=== PATIENT | female | born 1945 | race African-American/Black ===

== ENCOUNTER 2017-06-11 19:25 | Emergency (ER) | payer MEDICARE, BC ==
[2017-06-11 19:51] LABS: #Basophils 0.1 thou/uL (0.0-0.2); #Eosinphils 0.4 thou/uL (0.0-0.7); #Lymphocytes 2.5 thou/uL (1.20-3.40); #Monocytes 0.8 thou/uL (0.11-0.59); #Neutrophils 5.2 thou/uL (1.40-6.50); %Basophils 1.1 % (0.0-1.0); %Eosinophils 4.4 % (0.0-10.0); Hematocrit 43.6 % (36.0-47.0); Mean Platelet Volume 9.1 fL (7.4-10.4); Red Blood Cell (RBC) Count 4.67 mill/uL (4.20-5.40); White Blood Cell (WBC) Count 9.1 thou/uL (4.8-10.8)
[2017-06-11 20:17] LABS: ALT (SGPT) 52 U/L (8-55); AST (SGOT) 50 U/L (5-34); Alkaline Phosphatase 137 U/L (40-150); Anion Gap 12 mmol/L (10-20); BUN (Urea Nitrogen) 16 mg/dL (9.8-20.1); Bilirubin, Total 0.4 mg/dL (0.2-1.2); Calc. Creatinine Clearance 0 mL/min (70-130); Calcium 9.5 mg/dL (7.8-10.44); Carbon Dioxide 25 mmol/L (23-31); Chloride 106 mmol/L (98-107); Estimated GFR-MDRD 70; Protein, Total 7.3 g/dL (6.0-8.3)
[2017-06-11 20:21] LABS: Lactic Acid - Sepsis 2.3 mmol/L (0.5-2.2)
[2017-06-11 20:27] LABS: CK (CPK) 49 U/L (29-168); Lipase 21 U/L (8-78)
[2017-06-11 20:32] LABS: Troponin I Less than 0.010 ng/mL (< 0.028)
--- NOTE | 2017-06-11 20:32 | RAD ---
CHEST ONE VIEW 06/11/17 HISTORY: Hyperglycemia. COMPARISON: Chest one view, 04/24/15. FINDINGS: Lungs are clear. No pneumothorax. No focal air space consolidation. Scarring in the left lung base. IMPRESSION: No acute intrathoracic abnormality. POS: [facility]
[2017-06-11 21:22] LABS: Anion Gap 6 mmol/L (-14-95); T. Carbon Dioxide 31.3 mmol/L (1.0-85.0); pH (Venous) 7.411 (7.35-7.45); vO2 Saturation-calc 94.1 % (0.0-100.0)
[2017-06-11 22:36] LABS: Bilirubin Negative (Negative); Blood, Urine Negative (Negative); Glucose, Urine (Dipstick) Negative (Negative); Ketone, Urine Negative (Negative); Nitrite Negative (Negative); Protein, Urine (Dipstick) Negative (Neg-Trace)
--- NOTE | 2017-07-17 14:10 | EKG ---
Test Reason : Blood Pressure : / mmHG Vent. Rate : 086 BPM Atrial Rate : 086 BPM P-R Int : 258 ms QRS Dur : 098 ms QT Int : 386 ms P-R-T Axes : 038 001 034 degrees QTc Int : 461 ms Sinus rhythm with 1st degree A-V block Poor precordial transistion Otherwise normal ECG Confirmed by FAYE WAGNER DO ([id number]), slot editor WALKER STARR ([id number]) on 07/17/2017 2:09:39 PM Referred By: Confirmed By:FAYE WAGNER DO
== END 2017-06-11 23:50 | disposition home or self-care (01) ==
LOC: ERS 19:25
DX: E11.65 Type 2 diabetes mellitus with hyperglycemia (principal); F41.9 Anxiety disorder, unspecified; I11.0 Hypertensive heart disease with heart failure; I50.9 Heart failure, unspecified; E11.9 Type 2 diabetes mellitus without complications; J44.9 Chronic obstructive pulmonary disease, unspecified; E78.00 Pure hypercholesterolemia, unspecified; F32.9 Major depressive disorder, single episode, unspecified; Z79.899 Other long term (current) drug therapy; Z79.01 Long term (current) use of anticoagulants; Z79.84 Long term (current) use of oral hypoglycemic drugs
CPT/HCPCS: 36416; 51701; 71010; 80053; 81003; 82010; 82330; 82550; 82553; 82803; 83605; 83690; 83880; 84484; 85025; 93005; 94760; A4353

== ENCOUNTER 2018-11-26 19:36 | Emergency (ER) | payer MEDICARE, BC ==
[2018-11-26 20:32] LABS: #Eosinphils 0.3 thou/uL (0.0-0.7); #Lymphocytes 2.7 thou/uL (1.20-3.40); #Monocytes 0.6 thou/uL (0.11-0.59); #Neutrophils 5.7 thou/uL (1.40-6.50); %Basophils 0.1 % (0.0-1.0); %Eosinophils 2.9 % (0.0-10.0); %Lymphocytes 29.4 % (21.0-51.0); %Neutrophils 61.6 % (42.0-75.0); Hemoglobin 13.7 g/dL (12.0-16.0); Mean Corpuscular HGB CONC 32.2 g/dL (32.0-36.0); Mean Corpuscular Volume 90.1 fL (78.0-98.0); Mean Platelet Volume 9.3 fL (7.4-10.4); Platelet Count 173 thou/uL (130-400); RBC Distribution Width 13.3 % (11.5-14.5); Red Blood Cell (RBC) Count 4.72 mill/uL (4.20-5.40); White Blood Cell (WBC) Count 9.2 thou/uL (4.8-10.8)
--- NOTE | 2018-11-26 20:52 | RAD ---
Portable frontal chest radiograph: 11/26/2018 COMPARISON: 06/11/2017 HISTORY: Shortness of breath, dyspnea FINDINGS: Stable prominence of the cardiac silhouette. Stable mild pulmonary vascular prominence. No pneumothorax, pleural fluid, lobar consolidation, or alveolar edema. Pression: Stable appearance of the chest.
[2018-11-26 21:00] LABS: ALT (SGPT) 11 U/L (8-55); AST (SGOT) 13 U/L (5-34); Albumin 3.7 g/dL (3.4-4.8); Alkaline Phosphatase 119 U/L (40-150); Anion Gap 15 mmol/L (10-20); BUN (Urea Nitrogen) 19 mg/dL (9.8-20.1); Bilirubin, Total 0.4 mg/dL (0.2-1.2); Calc. Creatinine Clearance 0 mL/min (70-130); Calcium 9.6 mg/dL (7.8-10.44); Carbon Dioxide 29 mmol/L (23-31); Chloride 101 mmol/L (98-107); Estimated GFR-MDRD 66; Globulin 3.1 g/dL (2.4-3.5); Glucose 130 mg/dL (83-110); Potassium 4.5 mmol/L (3.5-5.1); Protein, Total 6.8 g/dL (6.0-8.3)
[2018-11-26 21:01] LABS: Sodium 140 mmol/L (136-145)
[2018-11-26] MEDS ORDERED: predniSONE 20 MG TAB ONE (22:20)
== END 2018-11-26 22:30 | disposition home or self-care (01) ==
LOC: ERS 19:36
DX: J44.1 Chronic obstructive pulmonary disease with (acute) exacerbation (principal); M19.90 Unspecified osteoarthritis, unspecified site; I11.0 Hypertensive heart disease with heart failure; I50.9 Heart failure, unspecified; F41.9 Anxiety disorder, unspecified; F32.9 Major depressive disorder, single episode, unspecified; Z79.891 Long term (current) use of opiate analgesic; Z79.899 Other long term (current) drug therapy; Z79.51 Long term (current) use of inhaled steroids
CPT/HCPCS: 36415; 71045; 80053; 83880; 84484; 85025; 93005; J7512

== ENCOUNTER 2019-01-11 13:13 | Outpatient (CLI) | payer MEDICARE, BC ==
--- NOTE | 2019-01-11 14:01 | MMO ---
Bilateral MAMMO Bilat Screen [facility]. CLINICAL HISTORY: Patient is 73 years old and is seen for screening. The patient has no family history of breast cancer. The patient has no personal history of cancer. VIEWS: The views performed were: bilateral craniocaudal with tomosynthesis and bilateral mediolateral oblique with tomosynthesis. FILMS COMPARED: The present examination has been compared to prior imaging studies performed at [facility] on 01/21/2005, 02/05/2006, 02/24/2007 and 08/20/2016. MAMMOGRAM FINDINGS: The breasts are almost entirely fat. There are benign appearing calcifications seen in both breasts. There are no suspicious masses, suspicious calcifications, or new areas of architectural distortion. IMPRESSION: THERE IS NO MAMMOGRAPHIC EVIDENCE OF MALIGNANCY. A ROUTINE FOLLOW-UP MAMMOGRAM IN 1 YEAR IS RECOMMENDED. THE RESULTS OF THIS EXAM WERE SENT TO THE PATIENT. ACR BI-RADS Category 2 - Benign finding MAMMOGRAPHY NOTE: 1. A negative mammogram report should not delay a biopsy if a dominant of clinically suspicious mass is present. 2. Approximately 10% to 15% of breast cancers are not detected by mammography. 3. Adenosis and dense breasts may obscure an underlying neoplasm.
== END 2019-01-11 13:14 | disposition home or self-care (01) ==
LOC: BICMAMMO 13:13
PROVIDERS: ATTEND Family Medicine
DX: Z12.31 Encounter for screening mammogram for malignant neoplasm of breast (principal)
CPT/HCPCS: 77063; 77067

== ENCOUNTER 2019-04-04 08:06 | Day surgery (SDC) | payer MEDICARE, BC ==
[2019-04-03 13:03] VITALS: BMI 64.3
[2019-04-04] MEDS ORDERED: Midazolam HCl 2 mg/2 ml Vial ONE (09:10)
[2019-04-04] MEDS ORDERED: Ketamine 50 MG/ML (10ML VIAL) ONE (09:11)
[2019-04-04] MEDS ORDERED: PROPOFOL 200 MG/20 ML VIAL ONE (15:12)
[2019-04-04] MEDS ORDERED: Lidocaine 1% PF 5 ML VIAL ONE (15:12)
--- NOTE | 2019-04-04 15:48 | OP ---
DATE OF PROCEDURE: 04/04/2019 PREPROCEDURE DIAGNOSES: 1. History of positive Cologuard test. 2. Morbid obesity. 3. Obstructive sleep apnea with home dependence on oxygen. PROCEDURE PERFORMED: Seven polyps removed from the colon ranging in size from 4 to 10 mm, removed by hot snare polypectomy. RECOMMENDATIONS: 1. Await histopathology. If these are adenomas, consider repeat colonoscopy in 3 years. 2. Cologuard screening is approved for average risk screening. This patient is no longer average risk. She will need colonoscopy followups. ANESTHESIA: TIVA. PROCEDURE IN DETAIL: The patient was informed of the risks, benefits, and possible complications of endoscopy including perforation, reaction to medication, and aspiration, informed consent was obtained. The patient was brought to endoscopy suite, where she was sedated in gradual fashion. Once she was comfortable, a rectal examination was performed, which was normal. The endoscope was advanced in the anal canal through the colon. The cecum was identified by the ileocecal valve and appendiceal orifice. The scope was then slowly removed. The prep was good. There was one polyp in the cecum flat 7 mm in size removed by hot snare polypectomy. There were two hepatic flexure polyps semi-pedunculated 5 to 10 mm in size, removed by hot snare polypectomy. There were three descending colon polyps, which were ranging in size from 5 to 10 mm semi-pedunculated, removed by hot snare polypectomy. There was one small 7 mm polyp in the sigmoid colon by hot snare polypectomy. This one was removed, but not retrieved. Retroflexed views were normal. The scope was removed. The patient tolerated the procedure well. There were no complications. Job ID: [id number]
== END 2019-04-04 10:48 | disposition home or self-care (01) ==
LOC: SDC 08:06
PROVIDERS: ATTEND Internal Medicine Gastroenterology
PROC: 0DBH8ZX Excision of Cecum, Via Natural or Artificial Opening Endoscopic, Diagnostic (ICD-10-PCS; principal; 2019-04-04)
PROC: 0DBL8ZX Excision of Transverse Colon, Via Natural or Artificial Opening Endoscopic, Diagnostic (ICD-10-PCS; 2019-04-04)
PROC: 0DBN8ZX Excision of Sigmoid Colon, Via Natural or Artificial Opening Endoscopic, Diagnostic (ICD-10-PCS; 2019-04-04)
PROC: 0DBM8ZX Excision of Descending Colon, Via Natural or Artificial Opening Endoscopic, Diagnostic (ICD-10-PCS; 2019-04-04)
DX: D12.0 Benign neoplasm of cecum (principal); D12.3 Benign neoplasm of transverse colon; D12.4 Benign neoplasm of descending colon; K63.5 Polyp of colon; G47.33 Obstructive sleep apnea (adult) (pediatric); K21.9 Gastro-esophageal reflux disease without esophagitis; F41.9 Anxiety disorder, unspecified; M19.90 Unspecified osteoarthritis, unspecified site; F32.9 Major depressive disorder, single episode, unspecified; I11.0 Hypertensive heart disease with heart failure; I50.9 Heart failure, unspecified; E78.00 Pure hypercholesterolemia, unspecified; E66.01 Morbid (severe) obesity due to excess calories; Z68.44 Body mass index [BMI] 60.0-69.9, adult; Z79.01 Long term (current) use of anticoagulants; Z79.84 Long term (current) use of oral hypoglycemic drugs; Z79.899 Other long term (current) drug therapy; Z88.0 Allergy status to penicillin; Z99.89 Dependence on other enabling machines and devices
CPT/HCPCS: 88305; J2001; J2250; J2704

== ENCOUNTER 2019-06-24 21:03 | Emergency (ER) | payer MEDICARE, BC ==
[~2019-06-24 21:03] MED LIST: Iopamidol 370 76% 50 ML VIAL FS ONE
[2019-06-24 22:36] LABS: #Basophils 0.1 thou/uL (0.0-0.2); #Lymphocytes 1.8 thou/uL (1.20-3.40); #Monocytes 0.7 thou/uL (0.11-0.59); #Neutrophils 8.7 thou/uL (1.40-6.50); %Basophils 0.5 % (0.0-1.0); %Eosinophils 0.3 % (0.0-10.0); %Lymphocytes 15.6 % (21.0-51.0); %Monocytes 5.8 % (0.0-10.0); %Neutrophils 77.8 % (42.0-75.0); Hemoglobin 13.7 g/dL (12.0-16.0); Mean Corpuscular HGB CONC 31.3 g/dL (32.0-36.0); Mean Corpuscular Volume 89.7 fL (78.0-98.0); Mean Platelet Volume 9.2 fL (7.4-10.4); Platelet Count 173 thou/uL (130-400); RBC Distribution Width 13.8 % (11.5-14.5); Red Blood Cell (RBC) Count 4.88 mill/uL (4.20-5.40); White Blood Cell (WBC) Count 11.2 thou/uL (4.8-10.8)
[2019-06-24 22:59] LABS: ALT (SGPT) 10 U/L (8-55); AST (SGOT) 10 U/L (5-34); Albumin 3.5 g/dL (3.4-4.8); Alkaline Phosphatase 97 U/L (40-110); Anion Gap 10 mmol/L (10-20); BUN (Urea Nitrogen) 12 mg/dL (9.8-20.1); Bilirubin, Total 0.6 mg/dL (0.2-1.2); Calc. Creatinine Clearance 0 mL/min (70-130); Calcium 9.8 mg/dL (7.8-10.44); Carbon Dioxide 29 mmol/L (23-31); Chloride 102 mmol/L (98-107); Estimated GFR-MDRD 82; Globulin 3.2 g/dL (2.4-3.5); Glucose 157 mg/dL (83-110); Lipase 5 U/L (8-78); Potassium 3.8 mmol/L (3.5-5.1); Protein, Total 6.7 g/dL (6.0-8.3); Sodium 137 mmol/L (136-145)
[2019-06-24] MEDS ORDERED: Ondansetron PF 4 MG/2 ML Vial ONE (23:06)
[2019-06-24] MEDS ORDERED: Morphine 4 MG/ML VIAL ONE (23:06)
--- NOTE | 2019-06-24 23:25 | RAD ---
RADIOGRAPH CHEST 1 VIEW: DATE: 06/24/2019 HISTORY: 73-year-old female with dyspnea FINDINGS: There is no airspace density, pulmonary edema, or pneumothorax. The lateral costophrenic angles are n ot effaced. Cardiac shadow is widened. It is uncertain how much of this is due to magnification due to body habitus, and how much, if any, represents actual cardiomegaly. Haziness in left lower lung zo ne, probably due to overlying soft tissues and body habitus. Left lower lobe infiltrate less likely but not excluded. IMPRESSION: Limited study. No convincing evidence of acute pulmonary disease.
--- NOTE | 2019-06-25 08:11 | CT ---
PRELIMINARY REPORT/[facility]/EMERGENCY AFTER HOURS PROCEDURE: This report was discussed with Oren Drake by Joan Johnson on Jun 25, 2019 01:59:00 ENTRY LEVEL ADMINISTRATIVE ASSISTANT. Addendum electronically signed by Joan Johnson on June 25, 2019 2:00:00 AM ENTRY LEVEL ADMINISTRATIVE ASSISTANT EXAM: CT ABDOMEN PELVIS W CON HISTORY: 73F reports to ED c/o sudden abdominal cramping, since 1600. PMHX cholecystectomy, hysterect pat. Pt reports associated vomiting (no blood), diarrhea. Pt denies fevers. COMPARISON: None FINDINGS: The lung bases are without acute abnormality. Postsurgical changes of prior laparoscopic cholecystectomy. No acute abnormality of the liver, spleen or pancreas. The adrenal glands are normal. No hydronephrosis or hydroureter. Several prominent, fluid-filled loops of small bowel within the right lower quadrant. No bowel wall mural thickening The appendix is discretely visualized. Anterior abdominal wall fat-containing hernia, inferiorly located at the midline. There is minimal i nternal fluid attenuation. (image 82, series 602 and image 78, series 2). No acute osseous abnormality. Multilevel degenerative changes throughout the visualized spine. No acute abnormality of the subcutaneous soft tissues. IMPRESSION: 1. Multiple prominent fluid-filled loops of small bowel within the right lower quadrant, which is no nspecific, can be seen with enteritis. No discrete evidence for bowel obstruction. 2. Fat-containing anterior abdominal wall hernia. There is intra-hernia fluid, which may be inflamm atory or reactive in etiology. Recommend clinical correlation for focal symptoms at this location. 3. The appendix is not visualized. ELECTRONICALLY SIGNED BY: Laurie Us MD Jun 25, 2019 1:48:05 AM ENTRY LEVEL ADMINISTRATIVE ASSISTANT This report is intended for review by the ordering physician only, in accordance of law. If you recei ve this report in error, please call [facility] at [phone]. FINAL REPORT I agree with the preliminary report provided. A few mildly prominent loops of small bowel within the lower central abdomen and right lower quadrant of the abdomen can be seen with an enteritis. The appendix is not definitely visualized. No draina ble fluid collection is evident. Other chronic findings as above. POS: [facility]
== END 2019-06-25 02:27 | disposition home or self-care (01) ==
LOC: ERS 21:03
DX: K52.9 Noninfective gastroenteritis and colitis, unspecified (principal); M19.90 Unspecified osteoarthritis, unspecified site; I11.0 Hypertensive heart disease with heart failure; I50.9 Heart failure, unspecified; E11.9 Type 2 diabetes mellitus without complications; F41.9 Anxiety disorder, unspecified; F32.9 Major depressive disorder, single episode, unspecified; J44.9 Chronic obstructive pulmonary disease, unspecified; Z79.899 Other long term (current) drug therapy; Z79.891 Long term (current) use of opiate analgesic
CPT/HCPCS: 36415; 71045; 74177; 80053; 83690; 85025; 93005; 96361; 96374; 96375; J2270; J2405; Q9967

== ENCOUNTER 2020-06-25 10:14 | Emergency (ER) | payer MEDICARE, BC ==
[2020-06-25] MEDS ORDERED: HYDROcodone/Acetaminophen 10/325 mg Tablet ONE (10:33)
[2020-06-25 10:58] LABS: Hemoglobin 13.6 g/dL (12.0-16.0); Mean Corpuscular HGB CONC 31.2 g/dL (32.0-36.0); Mean Corpuscular Hemoglobin 28.9 pg (27.0-31.0); Mean Corpuscular Volume 92.4 fL (78.0-98.0); Mean Platelet Volume 9.4 fL (7.4-10.4); Platelet Count 137 thou/uL (130-400); RBC Distribution Width 13.3 % (11.5-14.5); Red Blood Cell (RBC) Count 4.71 mill/uL (4.20-5.40); White Blood Cell (WBC) Count 7.4 thou/uL (4.8-10.8)
[2020-06-25 11:14] LABS: Band 1 % (5-11); Eosinophils 1 % (0-10); Lymphocytes 17 % (21-51); MDiff Complete? YES; Monocytes 18 % (0-10); Neutrophil 60 % (42-75); Platelet Morphology Comment Appears Adequate; Polychromasia SLIGHT = 2-3 cells (100X) (0-2/hpf); Reactive Lymphocytes 3 % (0-10)
[2020-06-25 11:18] LABS: ALT (SGPT) 7 U/L (8-55); AST (SGOT) 13 U/L (5-34); Albumin 3.3 g/dL (3.4-4.8); Alkaline Phosphatase 91 U/L (40-110); Anion Gap 13 mmol/L (10-20); BUN (Urea Nitrogen) 14 mg/dL (9.8-20.1); Bilirubin, Total 0.4 mg/dL (0.2-1.2); CK (CPK) 105 U/L (29-168); Calc. Creatinine Clearance 0 mL/min (70-130); Calcium 9.3 mg/dL (7.8-10.44); Carbon Dioxide 30 mmol/L (23-31); Chloride 100 mmol/L (98-107); Estimated GFR-MDRD 66; Globulin 3.2 g/dL (2.4-3.5); Glucose 133 mg/dL (83-110); Potassium 4.1 mmol/L (3.5-5.1); Protein, Total 6.5 g/dL (6.0-8.3); Sodium 139 mmol/L (136-145)
--- NOTE | 2020-06-25 11:25 | CT ---
CT BRAIN WITHOUT CONTRAST: HISTORY: Headache, fall, patient on blood thinners FINDINGS: No evidence of acute infarct, hemorrhage, midline shift or abnormal extra-axial fluid collections is seen. The ventricular size is appropriate and the basilar cisterns are patent. The bony calvarium is intact. The visualized paranasal sinuses and mastoid air cells are well aerated. IMPRESSION: No CT evidence of acute intracranial process.
--- NOTE | 2020-06-25 11:28 | CT ---
CT CERVICAL SPINE WITH CORONAL AND SAGITTAL REFORMATIONS AND NO IV CONTRAST: HISTORY: Fall, neck pain FINDINGS: Multilevel degenerative changes are present. There is loss of cervical lordosis with mild reversal. No fracture, subluxation or facet malalignment is identified. No prevertebral soft tissue swelling is apparent. The visualized lung apices are unremarkable. IMPRESSION: No CT evidence for fracture or traumatic subluxation.
--- NOTE | 2020-06-25 12:02 | RAD ---
PORTABLE CHEST 1 VIEW: Date: 06/25/2020 Time: 1102 hours HISTORY: 74-year-old female with cough, headache. COMPARISON: 06/24/2019. FINDINGS/IMPRESSION: The heart size is enlarged. No lobar consolidation, pneumothoraces, rufino pulmonary edema, or large e ffusions are seen. Haziness in the left retrocardiac region is again noted. POS: [facility]
[2020-06-25 20:13] LABS: SARS-CoV-2 MS2 Positive; SARS-CoV-2 N Gene Positive; SARS-CoV-2 S Gene Positive; SARS-CoV-2 by NAA DETECTED (NotDetected); SARS-CoV-2 orf1ab Positive
--- NOTE | 2020-06-29 15:19 | EKG ---
Test Reason : Blood Pressure : / mmHG Vent. Rate : 071 BPM Atrial Rate : 071 BPM P-R Int : 240 ms QRS Dur : 094 ms QT Int : 412 ms P-R-T Axes : 043 -03 -20 degrees QTc Int : 447 ms Sinus rhythm with 1st degree A-V block Inferior infarct , age undetermined Cannot rule out Anterior infarct , age undetermined Abnormal ECG Confirmed by CAMERON RUIZ ([id number]), technical editor GEOVANNY RAMOS ([id number]) on 06/29/2020 3:19:04 PM Referred By: Confirmed By:CAMERON Cabello
== END 2020-06-25 12:43 | disposition home or self-care (01) ==
LOC: ERS 10:14
DX: U07.1 COVID-19 (principal); J12.89 Other viral pneumonia; I11.0 Hypertensive heart disease with heart failure; I50.9 Heart failure, unspecified; E11.9 Type 2 diabetes mellitus without complications; J44.9 Chronic obstructive pulmonary disease, unspecified; Z79.51 Long term (current) use of inhaled steroids; Z79.01 Long term (current) use of anticoagulants; Z79.899 Other long term (current) drug therapy
CPT/HCPCS: 70450; 71045; 72125; 80053; 82550; 84484; 85025; 93005; 99285; U0003; 36415; 87635

== ENCOUNTER 2020-07-11 11:05 | Inpatient (IN) | payer MEDICARE, BC ==
[2020-07-11] MEDS ORDERED: Albuterol 200 PUFF (6.7GM INHALER) ONE (11:48)
--- NOTE | 2020-07-11 12:01 | RAD ---
PORTABLE CHEST 1 VIEW: Date: 07/11/2020 Time: 1151 hours HISTORY: Dyspnea. COMPARISON: 06/25/2020. FINDINGS/IMPRESSION: The heart size is enlarged. The lungs are well expanded with pulmonary vascular congestion and multif ocal patchy opacities. No pneumothoraces or large effusions are seen. The possibility of viral pneumo neela cannot be excluded. POS: [facility]
[2020-07-11 13:48] LABS: #Eosinphils 0.2 thou/uL (0.0-0.7); #Lymphocytes 1.6 thou/uL (1.20-3.40); #Monocytes 0.6 thou/uL (0.11-0.59); #Neutrophils 4.2 thou/uL (1.40-6.50); %Basophils 0.3 % (0.0-1.0); %Lymphocytes 24.7 % (21.0-51.0); %Monocytes 8.6 % (0.0-10.0); %Neutrophils 63.4 % (42.0-75.0); Mean Corpuscular HGB CONC 31.2 g/dL (32.0-36.0); Mean Corpuscular Hemoglobin 28.9 pg (27.0-31.0); Mean Corpuscular Volume 92.5 fL (78.0-98.0); Mean Platelet Volume 9.5 fL (7.4-10.4); Platelet Count 266 thou/uL (130-400); RBC Distribution Width 13.3 % (11.5-14.5); Red Blood Cell (RBC) Count 4.49 mill/uL (4.20-5.40); White Blood Cell (WBC) Count 6.6 thou/uL (4.8-10.8)
[2020-07-11] MEDS ORDERED: methylPREDNISolone Sod Succ/PF 125 MG/2 ML VIAL ONE (13:50)
[2020-07-11 14:14] LABS: ALT (SGPT) Less than 7 U/L (8-55); AST (SGOT) 9 U/L (5-34); Albumin 3.2 g/dL (3.4-4.8); Alkaline Phosphatase 78 U/L (40-110); Anion Gap 13 mmol/L (10-20); BUN (Urea Nitrogen) 11 mg/dL (9.8-20.1); Bilirubin, Total 0.5 mg/dL (0.2-1.2); Calc. Creatinine Clearance 0 mL/min (70-130); Calcium 8.4 mg/dL (7.8-10.44); Carbon Dioxide 29 mmol/L (23-31); Chloride 103 mmol/L (98-107); Globulin 3.2 g/dL (2.4-3.5); Glucose 112 mg/dL (83-110); Potassium 4.5 mmol/L (3.5-5.1); Protein, Total 6.4 g/dL (6.0-8.3); Sodium 140 mmol/L (136-145)
--- NOTE | 2020-07-11 18:58 | HP ---
PRIMARY CARE PROVIDER: Dr. Juan M Stein. CHIEF COMPLAINT: Shortness of breath. HISTORY OF PRESENT ILLNESS: This is a 74-year-old female, who presented to [facility] Emergency Department complaining of persistent shortness of breath with general body aches and lack of energy over the last 3 to 4 days. The patient states that she was diagnosed with COVID-19 on 06/25/2020 and placed on home oxygen up to 2 L/minute by nasal cannula. The patient states she was not using oxygen prior to the diagnosis, but has been over the last 2 plus weeks. The patient admits to persistent cough and some chills. The patient states she has been compliant with her chronic medication regimen and takes [id number] Tylenol for general body aches. The patient denies any specific contact with family members with COVID-19, but states she typically is very cautious about exposure and going out into the community. In the emergency room, patient underwent general evaluation with chest imaging showing multifocal patchy opacities consistent with COVID pneumonia. The patient received IV Solu-Medrol, Proventil HFA and was referred to the Hospitalist Service for evaluation. PAST MEDICAL HISTORY: 1. COVID-19 viral infection positive, 06/25/2020. 2. Diabetes mellitus type 2. 3. Chronic obstructive pulmonary disease. 4. Hyperlipidemia. 5. Hypertension. 6. Morbid obesity. 7. Question of congestive heart failure. 8. Deconditioning. PAST SURGICAL HISTORY: 1. Status post cholecystectomy. 2. Status post hysterectomy. 3. Status post bilateral tubal ligation. PAST PSYCHIATRIC HISTORY: Positive for anxiety/depression. CURRENT MEDICATIONS: 1. Albuterol sulfate 1 to 2 puffs inhaled q.4-6 hours p.r.n. 2. Protonix 40 mg p.o. daily. 3. Sertraline 150 mg p.o. daily. 4. Alprazolam 0.25 mg p.o. daily p.r.n. 5. Gabapentin 300 mg p.o. t.i.d. 6. Carvedilol 3.125 mg p.o. b.i.d. 7. Potassium chloride 40 mEq p.o. daily. 8. Lipitor 20 mg p.o. daily. 9. Eliquis 5 mg p.o. b.i.d. 10. Vitamin D3 of 50,000 units once a day. 11. Glipizide 2.5 mg p.o. daily. 12. Isosorbide mononitrate 30 mg p.o. daily. 13. Lasix 40 mg daily. 14. Losartan 25 mg p.o. daily. 15. Flexeril 5 mg p.o. q.8 hours p.r.n. ALLERGIES: TO PENICILLIN. FAMILY HISTORY: Positive for hypertension and diabetes mellitus. SOCIAL HISTORY: Resides in [place], [place]. Living independently. Retired. No alcohol, tobacco, or illicit drug use. Ambulates with a rolling walker. REVIEW OF SYSTEMS: CONSTITUTIONAL: Negative for weight loss or gain, ability to conduct usual activities. SKIN: Negative for rash, itching. EYES: Negative for double vision, pain. ENT/MOUTH: Negative for nose bleeding, neck stiffness, pain, tenderness. CARDIOVASCULAR: Negative for palpitations, dyspnea on exertion, orthopnea. RESPIRATORY: Negative for shortness of breath, wheezing, cough, hemoptysis, fever or night sweats. GASTROINTESTINAL: Negative for poor appetite, abdominal pain, heartburn, nausea, vomiting, constipation, or diarrhea. GENITOURINARY: Negative for urgency, frequency, dysuria, nocturia. MUSCULOSKELETAL: Negative for pain, swelling. NEUROLOGIC/PSYCHIATRIC: Negative for anxiety, depression. ALLERGY/IMMUNOLOGIC: Negative for skin rash, bleeding tendency. Otherwise negative except as stated per HPI. PHYSICAL EXAMINATION: VITAL SIGNS: On admission, blood pressure 137/78, pulse 85, respiratory rate 27, temperature 99.2 degrees Fahrenheit, O2 saturation 97% on 2 L/minute by nasal cannula. GENERAL APPEARANCE: This is a 74-year-old female, alert and oriented x3, pleasant, responsive, in mild respiratory distress. HEENT: Pupils are equal, round, and reactive to light and accommodation. Extraocular muscles are intact. No scleral icterus. No conjunctival injection. Nares are patent. OP is clear. Teeth in fair repair. NECK: Supple. No cervical adenopathy. No thyromegaly. No carotid bruits. No JVD appreciated. Cervical spine with full active and passive range of motion. No meningeal signs noted. CHEST: Diminished breath sounds bilaterally with occasional rhonchi. Positive tachypnea. CARDIOVASCULAR EXAM: S1, S2 without noted murmur, rub, or gallop. Heart sounds are distant. ABDOMEN: Obese, soft, nondistended, nontender. Bowel sounds are positive in all 4 quadrants. No palpable mass. No rebound or guarding appreciated. EXTREMITIES: Warm and dry with fair turgor. Pitting edema to the proximal shins bilaterally. Pulses palpable distally at the dorsalis pedis, posterior tibial, and popliteal arteries bilaterally. Capillary refill less than 2 seconds. NEUROLOGIC: Cranial nerves 2 through 12 are grossly intact. No focal or lateralizing signs appreciated. PERTINENT LABORATORY AND X-RAY FINDINGS: Basic metabolic profile within normal limits. Lactic acid level 0.9. LFTs within normal limits. Troponin I negative x1. BNP 24.7. CBC within normal limits. Portable chest x-ray dated 07/11/2020 showed multifocal patchy infiltrates with cardiomegaly. EKG dated 07/11/2020, by my interpretation shows sinus mechanism with heart rates in the 80s. Normal R-wave progression noted in the precordial leads. Normal axis. First-degree AV block pattern noted. No acute ST-T wave changes noted. ASSESSMENT/PLAN: 1. Pneumonia due to COVID-19. Admit to the medical floor. Continue isolation protocol. Start Rocephin 2 g IV q.24 hours with additional Zithromax 500 mg IV daily. Add Decadron 6 mg IV daily. Albuterol metered-dose inhaler 2 puffs q.4 hours p.r.n., vitamin C 1000 mg p.o. daily, and zinc sulfate 220 mg p.o. daily. Continue oxygen supplementation to maintain O2 saturations greater than or equal to 90%. 2. Acute on chronic hypoxic respiratory failure. Continue oxygen supplementation as outlined previously. Titrate to clinical response. 3. Diabetes mellitus type 2. Insulin sliding scale for reflexive coverage. ADA diet. Serial Accu-Cheks. Confirm home diabetic regimen. 4. Chronic anticoagulation. Continue Eliquis 5 mg p.o. b.i.d. 5. Hypertension. Continue home blood pressure regimen and monitor serial blood pressures, p.r.n. hydralazine. 6. Prophylaxis. SCDs while in bed. Pepcid 20 mg p.o. b.i.d. Isolation protocol. CODE STATUS: Full. Surrogate medical decision maker is patient's daughter. Job ID: [id number]
[2020-07-11 22:54] VITALS: BMI 63.6
[2020-07-11] MEDS ORDERED: ALPRAZolam 0.25 MG TAB PO SCH (23:15)
[2020-07-11] MEDS ORDERED: Ondansetron ODT 4 MG TAB PO PRN (23:23)
[2020-07-11] MEDS ORDERED: Dextrose 50% Abboject 50 ML SYRINGE SLOW IVP PRN (23:23)
[2020-07-11] MEDS ORDERED: Ondansetron PF 4 MG/2 ML Vial IVP PRN (23:23)
[2020-07-11] MEDS ORDERED: Dextrose 5% in Water 1,000 ML IV PRN (23:23)
[2020-07-11] MEDS ORDERED: Albuterol Sulfate 2.5 mg/3 ml Neb NEB PRN (23:23)
[2020-07-11] MEDS ORDERED: hydrALAZINE 20 MG/ML VIAL SLOW IVP PRN (23:23)
[2020-07-11] MEDS ORDERED: Famotidine 20 MG TAB PO SCH (23:45)
[2020-07-11] MEDS ORDERED: Gabapentin 300 MG CAP PO SCH (23:45)
[2020-07-11] MEDS ORDERED: Apixaban 5 MG TAB PO SCH (23:45)
[2020-07-11] MEDS: Furosemide 20 MG TAB PO SCH (23:55)
[2020-07-11] MEDS: cefTRIAXone\\ROCEPHIN 2 GM in Sodium Chloride 0.9% 100 ML IVPB SCH (23:56)
[2020-07-12] MEDS: Furosemide 20 MG TAB PO SCH ×3 (00:15→20:34)
[2020-07-12] MEDS: Azithromycin 500 MG in Sodium Chloride 0.9% 250 ML 250 ML IVPB SCH (00:15)
[2020-07-12 06:20] LABS: #Lymphocytes 1.1 thou/uL (1.20-3.40); #Monocytes 0.2 thou/uL (0.11-0.59); #Neutrophils 4.4 thou/uL (1.40-6.50); %Basophils 0.3 % (0.0-1.0); %Lymphocytes 18.3 % (21.0-51.0); %Monocytes 4.1 % (0.0-10.0); %Neutrophils 77.2 % (42.0-75.0); Hemoglobin 12.3 g/dL (12.0-16.0); Mean Corpuscular Hemoglobin 29.1 pg (27.0-31.0); Mean Corpuscular Volume 91.1 fL (78.0-98.0); Mean Platelet Volume 8.8 fL (7.4-10.4); Platelet Count 256 thou/uL (130-400); Red Blood Cell (RBC) Count 4.24 mill/uL (4.20-5.40); White Blood Cell (WBC) Count 5.7 thou/uL (4.8-10.8)
[2020-07-12 06:44] LABS: ALT (SGPT) 8 U/L (8-55); AST (SGOT) 8 U/L (5-34); Albumin 2.9 g/dL (3.4-4.8); Alkaline Phosphatase 70 U/L (40-110); Anion Gap 11 mmol/L (10-20); BUN (Urea Nitrogen) 10 mg/dL (9.8-20.1); Bilirubin, Total 0.3 mg/dL (0.2-1.2); Calc. Creatinine Clearance 166 mL/min (70-130); Calcium 8.5 mg/dL (7.8-10.44); Carbon Dioxide 31 mmol/L (23-31); Chloride 102 mmol/L (98-107); Globulin 3.6 g/dL (2.4-3.5); Glucose 215 mg/dL (83-110); Potassium 4.4 mmol/L (3.5-5.1); Protein, Total 6.5 g/dL (6.0-8.3); Sodium 140 mmol/L (136-145)
[2020-07-12] MEDS: Gabapentin 300 MG CAP PO SCH ×3 (08:25→20:34)
[2020-07-12] MEDS: Carvedilol 3.125 MG TAB PO SCH (08:26)
[2020-07-12] MEDS: Famotidine 20 MG TAB PO SCH ×2 (08:26→20:34)
[2020-07-12] MEDS: Apixaban 5 MG TAB PO SCH ×2 (08:26→20:33)
[2020-07-12] MEDS: Potassium Chloride 20 MEQ TAB PO SCH (08:26)
[2020-07-12] MEDS: Dexamethasone 4 mg/ml Vial SLOW IVP SCH (08:27)
[2020-07-12] MEDS: Losartan 25 MG TAB PO SCH (08:28)
--- NOTE | 2020-07-12 14:06 | PDOC.HOSPP ---
- Subjective Encounter Date: 07/12/20 Subjective: Patient was seen and examined. She does not appear to be in any respiratory distress. - Objective Vital Signs & Weight: Vital Signs (12 hours) Temp Pulse Resp BP BP Pulse Ox 07/12/20 08:00 98.2 F 72 20 149/85 H 96 07/12/20 04:00 98.2 F 71 20 149/80 H 98 Weight Weight 347 lb 9 oz I&O: 07/11/20 07/12/20 07/13/20 06:59 06:59 06:59 Intake Total 730 Output Total 250 Balance 480 Result Diagrams: 07/12/20 05:45 07/12/20 05:45 Additional Labs: Accuchecks 07/12/20 07/12/20 04:38 00:17 POC Glucose 215 H 217 H Hospitalist ROS - Medication Medications: Active Medications Generic Name Dose Route Start Last Admin Trade Name Freq PRN Reason Stop Dose Admin Apixaban 5 mg 07/12/20 09:00 07/12/20 08:26 Apixaban 5 Mg Tab PO 5 mg BID KALA Administration Carvedilol 3.125 mg 07/12/20 09:00 07/12/20 08:26 Carvedilol 3.125 Mg Tab PO 3.125 mg DAILY KALA Administration Dexamethasone 6 mg 07/12/20 09:00 07/12/20 08:27 Dexamethasone 4 Mg/Ml Vial SLOW IVP 6 mg DAILY KALA Administration Famotidine 20 mg 07/12/20 09:00 07/12/20 08:26 Famotidine 20 Mg Tab PO 20 mg BID KALA Administration Furosemide 20 mg 07/12/20 09:00 07/12/20 08:27 Furosemide 20 Mg Tab PO 20 mg BID KALA Administration Gabapentin 300 mg 07/12/20 09:00 07/12/20 08:25 Gabapentin 300 Mg Cap PO 300 mg TID KALA Administration Glipizide 2.5 mg 07/12/20 09:00 07/12/20 10:06 Glipizide Xl 2.5 Mg Tablet PO 2.5 mg DAILY KALA Administration Azithromycin 500 mg/ Sodium 250 mls @ 250 mls/hr 07/12/20 01:00 07/12/20 00:15 Chloride IVPB 250 mls Q24HR KALA Administration Ceftriaxone Sodium 2 gm/ 100 mls @ 200 mls/hr 07/11/20 23:59 12/17/20 23:56 Sodium Chloride IVPB 100 mls Q24HR KALA Administration Isosorbide Mononitrate 30 mg 07/12/20 09:00 07/12/20 08:26 Isosorbide Mononitrate Er 30 Mg Tab PO 30 mg DAILY KALA Administration Losartan Potassium 25 mg 07/12/20 09:00 07/12/20 08:28 Losartan 25 Mg Tab PO 25 mg DAILY KALA Administration Potassium Chloride 20 meq 07/12/20 09:00 07/12/20 08:26 Potassium Chloride 20 Meq Tab PO 20 meq DAILY KALA Administration Sertraline HCl 100 mg 07/12/20 09:00 07/12/20 08:26 Sertraline Hcl 100 Mg Tab PO 100 mg DAILY KALA Administration - Exam General Appearance: awake alert ENT: normocephalic atraumatic Neck: supple, no JVD Heart: RRR Respiratory: normal chest expansion, no tachypnea Gastrointestinal: soft Extremities: no cyanosis Neurological: cranial nerve grossly intact, no weakness Hosp A/P (1) Acute respiratory failure with hypoxia Code(s): J96.01 - ACUTE RESPIRATORY FAILURE WITH HYPOXIA Status: Acute (2) Pneumonia due to COVID-19 virus Code(s): U07.1 - COVID-19; J12.89 - OTHER VIRAL PNEUMONIA Status: Acute (3) History of DVT/PE Status: Active - Plan Continue supplemental oxygen as needed. Continue dexamethasone 6 mg IV daily. Eliquis for history of DVT and PE will also cover for hypercoagulability related to COVID-19.
[2020-07-12] MEDS: HumaLOG 300 UNITS/3 ML VIAL SC PRN ×2 (15:00→20:35)
[2020-07-12] MEDS: Atorvastatin Calcium 10 MG TAB PO SCH (20:33)
[2020-07-12] MEDS: ALPRAZolam 0.25 MG TAB PO PRN (22:27)
[2020-07-12] MEDS: cefTRIAXone\\ROCEPHIN 2 GM in Sodium Chloride 0.9% 100 ML IVPB SCH (23:29)
[2020-07-13] MEDS: Azithromycin 500 MG in Sodium Chloride 0.9% 250 ML 250 ML IVPB SCH (01:43)
[2020-07-13] MEDS: HumaLOG 300 UNITS/3 ML VIAL SC PRN ×4 (06:03→20:18)
[2020-07-13] MEDS: Potassium Chloride 20 MEQ TAB PO SCH (09:02)
[2020-07-13] MEDS: Apixaban 5 MG TAB PO SCH ×2 (09:02→20:10)
[2020-07-13] MEDS: Losartan 25 MG TAB PO SCH (09:02)
[2020-07-13] MEDS: Gabapentin 300 MG CAP PO SCH ×3 (09:03→20:10)
[2020-07-13] MEDS: Famotidine 20 MG TAB PO SCH ×2 (09:03→20:10)
[2020-07-13] MEDS: Dexamethasone 4 mg/ml Vial SLOW IVP SCH (09:03)
[2020-07-13] MEDS: Carvedilol 3.125 MG TAB PO SCH (09:03)
[2020-07-13] MEDS: Furosemide 20 MG TAB PO SCH ×2 (09:03→20:10)
--- NOTE | 2020-07-13 13:36 | PDOC.HOSPP ---
- Subjective Encounter Date: 07/13/20 Subjective: The patient was seen and examined. Her shortness of breath and cough appears to be improving since yesterday. - Objective Vital Signs & Weight: Vital Signs (12 hours) Temp Pulse Resp BP BP Pulse Ox 07/13/20 12:22 98.6 F 69 20 147/73 H 95 07/13/20 09:38 98.1 F 65 20 128/62 96 07/13/20 09:02 96 07/13/20 04:33 96 07/13/20 04:00 98.2 F 60 18 126/71 95 Weight Weight 347 lb 9 oz I&O: 07/12/20 07/13/20 07/14/20 06:59 06:59 06:59 Intake Total 730 850 Output Total 250 850 Balance 480 0 Result Diagrams: 07/12/20 05:45 07/12/20 05:45 Additional Labs: Accuchecks 07/13/20 07/13/20 07/12/20 11:28 04:44 20:32 POC Glucose 167 H 182 H 223 H 07/12/20 14:11 POC Glucose 237 H Hospitalist ROS - Medication Medications: Active Medications Generic Name Dose Route Start Last Admin Trade Name Freq PRN Reason Stop Dose Admin Alprazolam 0.25 mg 07/12/20 21:02 07/12/20 22:27 Alprazolam 0.25 Mg Tab PO 0.25 mg BIDPRN PRN Administration Anxiety Apixaban 5 mg 07/12/20 09:00 07/13/20 09:02 Apixaban 5 Mg Tab PO 5 mg BID KALA Administration Atorvastatin Calcium 20 mg 07/12/20 21:00 07/12/20 20:33 Atorvastatin Calcium 10 Mg Tab PO 20 mg HS KALA Administration Carvedilol 3.125 mg 07/12/20 09:00 07/13/20 09:03 Carvedilol 3.125 Mg Tab PO 3.125 mg DAILY KALA Administration Dexamethasone 6 mg 07/12/20 09:00 07/13/20 09:03 Dexamethasone 4 Mg/Ml Vial SLOW IVP 6 mg DAILY KALA Administration Famotidine 20 mg 07/12/20 09:00 07/13/20 09:03 Famotidine 20 Mg Tab PO 20 mg BID KALA Administration Furosemide 20 mg 07/12/20 09:00 07/13/20 09:03 Furosemide 20 Mg Tab PO 20 mg BID KALA Administration Gabapentin 300 mg 07/12/20 09:00 07/13/20 09:03 Gabapentin 300 Mg Cap PO 300 mg TID KALA Administration Glipizide 2.5 mg 07/12/20 09:00 07/13/20 09:01 Glipizide Xl 2.5 Mg Tablet PO 2.5 mg DAILY KALA Administration Azithromycin 500 mg/ Sodium 250 mls @ 250 mls/hr 07/12/20 01:00 07/13/20 01:43 Chloride IVPB 250 mls Q24HR KALA Administration Ceftriaxone Sodium 2 gm/ 100 mls @ 200 mls/hr 07/11/20 23:59 07/12/20 23:29 Sodium Chloride IVPB 100 mls Q24HR KALA Administration Insulin Human Lispro 0 units 07/11/20 23:23 07/13/20 11:57 Humalog 300 Units/3 Ml Vial SC 2 unit .MODERATE SLIDING SC PRN Administration Moderate Correctional Scale Insulin Human Lispro 0 units 07/11/20 23:23 07/12/20 20:35 Humalog 300 Units/3 Ml Vial SC 2 unit .BEDTIME SLIDING SC PRN Administration Bedtime Correctional Scale Isosorbide Mononitrate 30 mg 07/12/20 09:00 07/13/20 09:03 Isosorbide Mononitrate Er 30 Mg Tab PO 30 mg DAILY KALA Administration Losartan Potassium 25 mg 07/12/20 09:00 07/13/20 09:02 Losartan 25 Mg Tab PO 25 mg DAILY KALA Administration Potassium Chloride 20 meq 07/12/20 09:00 07/13/20 09:02 Potassium Chloride 20 Meq Tab PO 20 meq DAILY KALA Administration Sertraline HCl 100 mg 07/12/20 09:00 07/13/20 09:02 Sertraline Hcl 100 Mg Tab PO 100 mg DAILY KALA Administration - Exam General Appearance: awake alert ENT: normocephalic atraumatic Neck: supple, no JVD Heart: RRR Respiratory: normal chest expansion, no tachypnea, rhonchi Extremities: no cyanosis, no clubbing Neurological: cranial nerve grossly intact, no new deficit Hosp A/P (1) Acute respiratory failure with hypoxia Code(s): J96.01 - ACUTE RESPIRATORY FAILURE WITH HYPOXIA Status: Acute (2) Pneumonia due to COVID-19 virus Code(s): U07.1 - COVID-19; J12.89 - OTHER VIRAL PNEUMONIA Status: Acute (3) History of DVT/PE Status: Active - Plan Continue supplemental oxygen and wean off the level as tolerated. Continue dexamethasone 6 mg IV daily. Eliquis for history of DVT and PE will also cover for hypercoagulability related to COVID-19.
[2020-07-13] MEDS: Acetaminophen 500 MG TAB PO PRN (14:34)
--- NOTE | 2020-07-13 16:32 | EKG ---
Test Reason : Blood Pressure : / mmHG Vent. Rate : 086 BPM Atrial Rate : 086 BPM P-R Int : 230 ms QRS Dur : 094 ms QT Int : 376 ms P-R-T Axes : 049 048 045 degrees QTc Int : 449 ms Sinus rhythm with 1st degree A-V block Possible Inferior infarct , age undetermined Abnormal ECG Confirmed by BAKARI MCCANN M.D. ([id number]), editor farm journal GEOVANNY RAMOS ([id number]) on 07/13/2020 4:31:54 PM Referred By: Confirmed By:BAKARI MCCANN M.D.
[2020-07-13] MEDS: Atorvastatin Calcium 10 MG TAB PO SCH (20:10)
[2020-07-14] MEDS: cefTRIAXone\\ROCEPHIN 2 GM in Sodium Chloride 0.9% 100 ML IVPB SCH
[2020-07-14] MEDS: Azithromycin 500 MG in Sodium Chloride 0.9% 250 ML 250 ML IVPB SCH (02:09)
[2020-07-14] MEDS: Acetaminophen 500 MG TAB PO PRN ×2 (02:51→21:13)
[2020-07-14] MEDS: HumaLOG 300 UNITS/3 ML VIAL SC PRN ×3 (05:53→17:11)
[2020-07-14] MEDS: Furosemide 20 MG TAB PO SCH ×2 (08:13→21:13)
[2020-07-14] MEDS: Famotidine 20 MG TAB PO SCH ×2 (08:13→21:13)
[2020-07-14] MEDS: Apixaban 5 MG TAB PO SCH ×2 (08:14→21:12)
[2020-07-14] MEDS: Carvedilol 3.125 MG TAB PO SCH (08:14)
[2020-07-14] MEDS: Potassium Chloride 20 MEQ TAB PO SCH (08:14)
[2020-07-14] MEDS: Losartan 25 MG TAB PO SCH (08:14)
[2020-07-14] MEDS: Gabapentin 300 MG CAP PO SCH ×3 (08:14→21:13)
[2020-07-14] MEDS: Dexamethasone 4 mg/ml Vial SLOW IVP SCH (08:15)
[2020-07-14] MEDS: ALPRAZolam 0.25 MG TAB PO PRN (17:12)
--- NOTE | 2020-07-14 17:18 | PDOC.HOSPP ---
- Subjective Encounter Date: 07/14/20 Subjective: She is feeling better today. Her shortness of breath is improving. - Objective Vital Signs & Weight: Vital Signs (12 hours) Temp Pulse Resp BP Pulse Ox 07/14/20 15:08 98.3 F 62 16 130/67 98 07/14/20 08:11 98.3 F 62 20 134/64 96 07/14/20 08:00 94 L Weight Weight 347 lb 9 oz I&O: 07/13/20 07/14/20 07/15/20 06:59 06:59 06:59 Intake Total 850 1330 Output Total 850 1050 Balance 0 280 Result Diagrams: 07/12/20 05:45 07/12/20 05:45 Additional Labs: Accuchecks 07/14/20 07/14/20 07/14/20 15:44 11:49 05:52 POC Glucose 281 H 237 H 172 H 07/13/20 20:16 POC Glucose 212 H Hospitalist ROS - Medication Medications: Active Medications Generic Name Dose Route Start Last Admin Trade Name Freq PRN Reason Stop Dose Admin Acetaminophen 1,000 mg 07/11/20 23:23 07/14/20 02:51 Acetaminophen 500 Mg Tab PO 1,000 mg Q6H PRN Administration Mild Pain (1-3) Alprazolam 0.25 mg 07/12/20 21:02 07/12/20 22:27 Alprazolam 0.25 Mg Tab PO 0.25 mg BIDPRN PRN Administration Anxiety Apixaban 5 mg 07/12/20 09:00 07/14/20 08:14 Apixaban 5 Mg Tab PO 5 mg BID KALA Administration Atorvastatin Calcium 20 mg 07/12/20 21:00 07/13/20 20:10 Atorvastatin Calcium 10 Mg Tab PO 20 mg HS KALA Administration Carvedilol 3.125 mg 07/12/20 09:00 07/14/20 08:14 Carvedilol 3.125 Mg Tab PO 3.125 mg DAILY KALA Administration Dexamethasone 6 mg 07/12/20 09:00 07/14/20 08:15 Dexamethasone 4 Mg/Ml Vial SLOW IVP 6 mg DAILY KALA Administration Famotidine 20 mg 07/12/20 09:00 07/14/20 08:13 Famotidine 20 Mg Tab PO 20 mg BID KALA Administration Furosemide 20 mg 07/12/20 09:00 07/14/20 08:13 Furosemide 20 Mg Tab PO 20 mg BID KALA Administration Gabapentin 300 mg 07/12/20 09:00 07/14/20 14:31 Gabapentin 300 Mg Cap PO 300 mg TID KALA Administration Glipizide 2.5 mg 07/12/20 09:00 07/14/20 08:15 Glipizide Xl 2.5 Mg Tablet PO 2.5 mg DAILY KALA Administration Azithromycin 500 mg/ Sodium 250 mls @ 250 mls/hr 07/12/20 01:00 07/14/20 02:09 Chloride IVPB 250 mls Q24HR KALA Administration Ceftriaxone Sodium 2 gm/ 100 mls @ 200 mls/hr 07/11/20 23:59 07/14/20 00:00 Sodium Chloride IVPB 100 mls Q24HR KALA Administration Insulin Human Lispro 0 units 07/11/20 23:23 07/14/20 12:26 Humalog 300 Units/3 Ml Vial SC 4 unit .MODERATE SLIDING SC PRN Administration Moderate Correctional Scale Insulin Human Lispro 0 units 07/11/20 23:23 07/13/20 20:18 Humalog 300 Units/3 Ml Vial SC 2 unit .BEDTIME SLIDING SC PRN Administration Bedtime Correctional Scale Isosorbide Mononitrate 30 mg 07/12/20 09:00 07/14/20 08:14 Isosorbide Mononitrate Er 30 Mg Tab PO 30 mg DAILY KALA Administration Losartan Potassium 25 mg 07/12/20 09:00 07/14/20 08:14 Losartan 25 Mg Tab PO 25 mg DAILY KALA Administration Potassium Chloride 20 meq 07/12/20 09:00 07/14/20 08:14 Potassium Chloride 20 Meq Tab PO 20 meq DAILY KALA Administration Sertraline HCl 100 mg 07/12/20 09:00 07/14/20 08:15 Sertraline Hcl 100 Mg Tab PO 100 mg DAILY KALA Administration - Exam General Appearance: awake alert ENT: normocephalic atraumatic Neck: supple, no JVD Heart: RRR Respiratory: normal chest expansion, no tachypnea Neurological: cranial nerve grossly intact, no focal deficits Hosp A/P (1) Acute respiratory failure with hypoxia Code(s): J96.01 - ACUTE RESPIRATORY FAILURE WITH HYPOXIA Status: Acute (2) Pneumonia due to COVID-19 virus Code(s): U07.1 - COVID-19; J12.89 - OTHER VIRAL PNEUMONIA Status: Acute (3) History of DVT/PE Status: Active - Plan Continue supplemental oxygen and wean off the level as tolerated. She is saturating well on RA while in the bed but desaturates easily with movement. Continue dexamethasone 6 mg IV daily. Eliquis for history of DVT and PE will also cover for hypercoagulability related to COVID-19. DC IV antibiotics as this is unlikely bacterial infection.
[2020-07-14] MEDS: Atorvastatin Calcium 10 MG TAB PO SCH (21:12)
[2020-07-15] MEDS: HumaLOG 300 UNITS/3 ML VIAL SC PRN ×4 (05:20→20:38)
[2020-07-15 05:52] LABS: #Eosinphils 0.1 thou/uL (0.0-0.7); #Lymphocytes 1.4 thou/uL (1.20-3.40); #Monocytes 0.7 thou/uL (0.11-0.59); %Basophils 0.6 % (0.0-1.0); %Eosinophils 0.7 % (0.0-10.0); %Lymphocytes 17.1 % (21.0-51.0); %Monocytes 8.3 % (0.0-10.0); %Neutrophils 73.4 % (42.0-75.0); Hemoglobin 12.6 g/dL (12.0-16.0); Mean Corpuscular HGB CONC 31.3 g/dL (32.0-36.0); Mean Corpuscular Hemoglobin 28.8 pg (27.0-31.0); Mean Corpuscular Volume 92.1 fL (78.0-98.0); Mean Platelet Volume 8.9 fL (7.4-10.4); Platelet Count 198 thou/uL (130-400); RBC Distribution Width 13.1 % (11.5-14.5); Red Blood Cell (RBC) Count 4.38 mill/uL (4.20-5.40); White Blood Cell (WBC) Count 8.1 thou/uL (4.8-10.8)
[2020-07-15 06:10] LABS: Anion Gap 12 mmol/L (10-20); BUN (Urea Nitrogen) 19 mg/dL (9.8-20.1); Calc. Creatinine Clearance 161 mL/min (70-130); Calcium 8.4 mg/dL (7.8-10.44); Carbon Dioxide 33 mmol/L (23-31); Chloride 97 mmol/L (98-107); Glucose 161 mg/dL (83-110); Potassium 4.4 mmol/L (3.5-5.1); Sodium 138 mmol/L (136-145)
[2020-07-15] MEDS: Carvedilol 3.125 MG TAB PO SCH (08:27)
[2020-07-15] MEDS: Gabapentin 300 MG CAP PO SCH ×3 (08:28→20:38)
[2020-07-15] MEDS: Furosemide 20 MG TAB PO SCH ×2 (08:28→20:38)
[2020-07-15] MEDS: Losartan 25 MG TAB PO SCH (08:28)
[2020-07-15] MEDS: Potassium Chloride 20 MEQ TAB PO SCH (08:28)
[2020-07-15] MEDS: Apixaban 5 MG TAB PO SCH ×2 (08:28→20:38)
[2020-07-15] MEDS: Famotidine 20 MG TAB PO SCH ×2 (08:28→20:38)
[2020-07-15] MEDS: Dexamethasone 4 mg/ml Vial SLOW IVP SCH (08:29)
--- NOTE | 2020-07-15 09:28 | PDOC.HOSPP ---
- Subjective Encounter Date: 07/15/20 Encounter Time: 09:27 Subjective: alert, minimal cough. Sats ok on room air - Objective Vital Signs & Weight: Vital Signs (12 hours) Pulse Pulse Ox 07/15/20 06:01 95 07/15/20 04:00 60 Weight Weight 347 lb 9 oz I&O: 07/14/20 07/15/20 07/16/20 06:59 06:59 06:59 Intake Total 1330 480 Output Total 1050 1450 Balance 280 -970 Result Diagrams: 07/15/20 05:27 07/15/20 05:27 Additional Labs: Accuchecks 07/15/20 07/14/20 07/14/20 05:22 21:25 15:44 POC Glucose 178 H 193 H 281 H 07/14/20 11:49 POC Glucose 237 H Hospitalist ROS - Medication Medications: Active Medications Generic Name Dose Route Start Last Admin Trade Name Freq PRN Reason Stop Dose Admin Acetaminophen 1,000 mg 07/11/20 23:23 07/14/20 21:13 Acetaminophen 500 Mg Tab PO 1,000 mg Q6H PRN Administration Mild Pain (1-3) Alprazolam 0.25 mg 07/12/20 21:02 07/14/20 17:12 Alprazolam 0.25 Mg Tab PO 0.25 mg BIDPRN PRN Administration Anxiety Apixaban 5 mg 07/12/20 09:00 07/15/20 08:28 Apixaban 5 Mg Tab PO 5 mg BID KALA Administration Atorvastatin Calcium 20 mg 07/12/20 21:00 07/14/20 21:12 Atorvastatin Calcium 10 Mg Tab PO 20 mg HS KALA Administration Carvedilol 3.125 mg 07/12/20 09:00 07/15/20 08:27 Carvedilol 3.125 Mg Tab PO 3.125 mg DAILY KALA Administration Dexamethasone 6 mg 07/12/20 09:00 07/15/20 08:29 Dexamethasone 4 Mg/Ml Vial SLOW IVP 6 mg DAILY KALA Administration Famotidine 20 mg 07/12/20 09:00 07/15/20 08:28 Famotidine 20 Mg Tab PO 20 mg BID KALA Administration Furosemide 20 mg 07/12/20 09:00 07/15/20 08:28 Furosemide 20 Mg Tab PO 20 mg BID KALA Administration Gabapentin 300 mg 07/12/20 09:00 07/15/20 08:28 Gabapentin 300 Mg Cap PO 300 mg TID KALA Administration Glipizide 2.5 mg 07/12/20 09:00 07/14/20 08:15 Glipizide Xl 2.5 Mg Tablet PO 2.5 mg DAILY KALA Administration Insulin Human Lispro 0 units 07/11/20 23:23 07/15/20 05:20 Humalog 300 Units/3 Ml Vial SC 2 unit .MODERATE SLIDING SC PRN Administration Moderate Correctional Scale Insulin Human Lispro 0 units 07/11/20 23:23 07/13/20 20:18 Humalog 300 Units/3 Ml Vial SC 2 unit .BEDTIME SLIDING SC PRN Administration Bedtime Correctional Scale Isosorbide Mononitrate 30 mg 07/12/20 09:00 07/15/20 08:29 Isosorbide Mononitrate Er 30 Mg Tab PO 30 mg DAILY KALA Administration Losartan Potassium 25 mg 07/12/20 09:00 07/15/20 08:28 Losartan 25 Mg Tab PO 25 mg DAILY KALA Administration Potassium Chloride 20 meq 07/12/20 09:00 07/15/20 08:28 Potassium Chloride 20 Meq Tab PO 20 meq DAILY KALA Administration Sertraline HCl 100 mg 07/12/20 09:00 07/15/20 08:28 Sertraline Hcl 100 Mg Tab PO 100 mg DAILY KALA Administration - Exam General Appearance: awake alert Neck: no JVD Heart: RRR, no murmur Respiratory - other findings: good BS, few faint fine rales Gastrointestinal: soft, non-distended Extremities: no edema Hosp A/P (1) Pneumonia due to COVID-19 virus Code(s): U07.1 - COVID-19; J12.89 - OTHER VIRAL PNEUMONIA Status: Acute (2) Acute respiratory failure with hypoxia Code(s): J96.01 - ACUTE RESPIRATORY FAILURE WITH HYPOXIA Status: Acute (3) HTN (hypertension) Code(s): I10 - ESSENTIAL (PRIMARY) HYPERTENSION Status: Acute Qualifiers: Hypertension type: essential hypertension Qualified Code(s): I10 - Essential (primary) hypertension (4) DM type 2 (diabetes mellitus, type 2) Status: Acute Qualifiers: Diabetes mellitus fci insulin use: without fci use Diabetes mellitus complication status: without complication Qualified Code(s): E11.9 - Type 2 diabetes mellitus without complications (5) Chronic anticoagulation Code(s): Z79.01 - 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
[2020-07-15] MEDS: ALPRAZolam 0.25 MG TAB PO PRN (13:16)
[2020-07-15] MEDS: Atorvastatin Calcium 10 MG TAB PO SCH (20:38)
[2020-07-15] MEDS: Acetaminophen 500 MG TAB PO PRN (20:39)
[2020-07-16] MEDS: HumaLOG 300 UNITS/3 ML VIAL SC PRN ×4 (05:58→21:09)
[2020-07-16 06:10] LABS: #Lymphocytes 1.4 thou/uL (1.20-3.40); #Monocytes 0.7 thou/uL (0.11-0.59); #Neutrophils 6.6 thou/uL (1.40-6.50); %Basophils 0.1 % (0.0-1.0); %Eosinophils 0.4 % (0.0-10.0); %Lymphocytes 16.4 % (21.0-51.0); %Monocytes 7.9 % (0.0-10.0); %Neutrophils 75.3 % (42.0-75.0); Hemoglobin 12.3 g/dL (12.0-16.0); Mean Corpuscular HGB CONC 31.8 g/dL (32.0-36.0); Mean Corpuscular Volume 91.2 fL (78.0-98.0); Mean Platelet Volume 8.8 fL (7.4-10.4); Platelet Count 254 thou/uL (130-400); Red Blood Cell (RBC) Count 4.26 mill/uL (4.20-5.40); White Blood Cell (WBC) Count 8.7 thou/uL (4.8-10.8)
[2020-07-16 06:29] LABS: BUN (Urea Nitrogen) 20 mg/dL (9.8-20.1); Calc. Creatinine Clearance 157 mL/min (70-130); Calcium 8.7 mg/dL (7.8-10.44); Glucose 166 mg/dL (83-110)
[2020-07-16 06:39] LABS: Anion Gap 11 mmol/L (10-20); Carbon Dioxide 38 mmol/L (23-31); Chloride 94 mmol/L (98-107); Potassium 4.3 mmol/L (3.5-5.1); Sodium 139 mmol/L (136-145)
[2020-07-16] MEDS: Gabapentin 300 MG CAP PO SCH ×3 (08:00→19:49)
[2020-07-16] MEDS: Dexamethasone 4 mg/ml Vial SLOW IVP SCH (08:00)
--- NOTE | 2020-07-16 08:00 | PDOC.HOSPP ---
- Subjective Encounter Date: 07/16/20 Encounter Time: 07:51 Subjective: needs O2 with any exertion, no complaint otherwise - Objective Vital Signs & Weight: Vital Signs (12 hours) Temp Pulse Resp BP Pulse Ox 07/15/20 20:50 98.8 F 72 20 119/62 92 L Weight Weight 347 lb 9 oz I&O: 07/15/20 07/16/20 07/17/20 06:59 06:59 06:59 Intake Total 480 490 Output Total 1450 1900 Balance -970 -1410 Result Diagrams: 07/16/20 05:45 07/16/20 05:45 Additional Labs: Accuchecks 07/16/20 07/15/20 07/15/20 05:56 20:50 15:25 POC Glucose 171 H 226 H 294 H 07/15/20 10:37 POC Glucose 185 H Hospitalist ROS - Medication Medications: Active Medications Generic Name Dose Route Start Last Admin Trade Name Freq PRN Reason Stop Dose Admin Acetaminophen 1,000 mg 07/11/20 23:23 07/15/20 20:39 Acetaminophen 500 Mg Tab PO 1,000 mg Q6H PRN Administration Mild Pain (1-3) Alprazolam 0.25 mg 07/12/20 21:02 07/15/20 13:16 Alprazolam 0.25 Mg Tab PO 0.25 mg BIDPRN PRN Administration Anxiety Apixaban 5 mg 07/12/20 09:00 07/15/20 20:38 Apixaban 5 Mg Tab PO 5 mg BID KALA Administration Atorvastatin Calcium 20 mg 07/12/20 21:00 07/15/20 20:38 Atorvastatin Calcium 10 Mg Tab PO 20 mg HS KALA Administration Carvedilol 3.125 mg 07/12/20 09:00 07/15/20 08:27 Carvedilol 3.125 Mg Tab PO 3.125 mg DAILY KALA Administration Dexamethasone 6 mg 07/12/20 09:00 07/15/20 08:29 Dexamethasone 4 Mg/Ml Vial SLOW IVP 6 mg DAILY KALA Administration Famotidine 20 mg 07/12/20 09:00 07/15/20 20:38 Famotidine 20 Mg Tab PO 20 mg BID KALA Administration Furosemide 20 mg 07/12/20 09:00 07/15/20 20:38 Furosemide 20 Mg Tab PO 20 mg BID KALA Administration Gabapentin 300 mg 07/12/20 09:00 07/15/20 20:38 Gabapentin 300 Mg Cap PO 300 mg TID KALA Administration Glipizide 2.5 mg 07/12/20 09:00 07/15/20 12:48 Glipizide Xl 2.5 Mg Tablet PO 2.5 mg DAILY KALA Administration Insulin Human Lispro 0 units 07/11/20 23:23 07/16/20 05:58 Humalog 300 Units/3 Ml Vial SC 2 unit .MODERATE SLIDING SC PRN Administration Moderate Correctional Scale Insulin Human Lispro 0 units 07/11/20 23:23 07/15/20 20:38 Humalog 300 Units/3 Ml Vial SC 2 unit .BEDTIME SLIDING SC PRN Administration Bedtime Correctional Scale Isosorbide Mononitrate 30 mg 07/12/20 09:00 07/15/20 08:29 Isosorbide Mononitrate Er 30 Mg Tab PO 30 mg DAILY KALA Administration Losartan Potassium 25 mg 07/12/20 09:00 07/15/20 08:28 Losartan 25 Mg Tab PO 25 mg DAILY KALA Administration Potassium Chloride 20 meq 07/12/20 09:00 07/15/20 08:28 Potassium Chloride 20 Meq Tab PO 20 meq DAILY KALA Administration Sertraline HCl 100 mg 07/12/20 09:00 07/15/20 08:28 Sertraline Hcl 100 Mg Tab PO 100 mg DAILY KALA Administration - Exam General Appearance: awake alert Neck: no JVD Heart: RRR, no murmur Respiratory - other findings: fine rales post Gastrointestinal: soft, non-tender, normal bowel sounds Extremities: no edema Hosp A/P (1) Pneumonia due to COVID-19 virus Code(s): U07.1 - COVID-19; J12.89 - OTHER VIRAL PNEUMONIA Status: Acute (2) Acute respiratory failure with hypoxia Code(s): J96.01 - ACUTE RESPIRATORY FAILURE WITH HYPOXIA Status: Acute (3) HTN (hypertension) Code(s): I10 - ESSENTIAL (PRIMARY) HYPERTENSION Status: Acute Qualifiers: Hypertension type: essential hypertension Qualified Code(s): I10 - Essential (primary) hypertension (4) DM type 2 (diabetes mellitus, type 2) Status: Acute Qualifiers: Diabetes mellitus nursing home insulin use: without intermediate manager use Diabetes mellitus complication status: without complication Qualified Code(s): E11.9 - Type 2 diabetes mellitus without complications (5) Chronic anticoagulation Code(s): 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
[2020-07-16] MEDS: Famotidine 20 MG TAB PO SCH ×2 (08:01→19:49)
[2020-07-16] MEDS: Losartan 25 MG TAB PO SCH (08:01)
[2020-07-16] MEDS: Carvedilol 3.125 MG TAB PO SCH (08:01)
[2020-07-16] MEDS: Potassium Chloride 20 MEQ TAB PO SCH (08:01)
[2020-07-16] MEDS: Furosemide 20 MG TAB PO SCH ×2 (08:01→19:50)
[2020-07-16] MEDS: Apixaban 5 MG TAB PO SCH ×2 (08:01→19:50)
[2020-07-16] MEDS: Acetaminophen 500 MG TAB PO PRN ×2 (12:31→19:51)
[2020-07-16] MEDS: ALPRAZolam 0.25 MG TAB PO PRN (19:49)
[2020-07-16] MEDS: Atorvastatin Calcium 10 MG TAB PO SCH (19:50)
[2020-07-17] MEDS: HumaLOG 300 UNITS/3 ML VIAL SC PRN ×2 (04:57→13:26)
[2020-07-17 06:57] LABS: Anion Gap 13 mmol/L (10-20); BUN (Urea Nitrogen) 20 mg/dL (9.8-20.1); Calc. Creatinine Clearance 163 mL/min (70-130); Calcium 8.9 mg/dL (7.8-10.44); Carbon Dioxide 35 mmol/L (23-31); Chloride 94 mmol/L (98-107); Glucose 188 mg/dL (83-110); Potassium 4.1 mmol/L (3.5-5.1); Sodium 138 mmol/L (136-145)
--- NOTE | 2020-07-17 07:24 | PDOC.HOSPP ---
- Subjective Encounter Date: 07/17/20 Encounter Time: 07:23 Subjective: no sob.cogh, fever - Objective Vital Signs & Weight: Vital Signs (12 hours) Temp Pulse Resp BP BP Pulse Ox 07/17/20 06:43 98 07/17/20 04:53 127/75 07/16/20 20:00 98 07/16/20 19:53 98.2 F 61 20 150/63 H 98 Weight Weight 347 lb 9 oz I&O: 07/16/20 07/17/20 07/18/20 06:59 06:59 06:59 Intake Total 490 1830 Output Total 1900 800 Balance -1410 1030 Result Diagrams: 07/16/20 05:45 07/17/20 06:10 Additional Labs: Accuchecks 07/17/20 07/16/20 07/16/20 04:54 19:58 15:19 POC Glucose 200 H 242 H 358 H 07/16/20 11:21 POC Glucose 219 H Hospitalist ROS - Medication Medications: Active Medications Generic Name Dose Route Start Last Admin Trade Name Freq PRN Reason Stop Dose Admin Acetaminophen 1,000 mg 07/11/20 23:23 07/16/20 19:51 Acetaminophen 500 Mg Tab PO 1,000 mg Q6H PRN Administration Mild Pain (1-3) Alprazolam 0.25 mg 07/12/20 21:02 07/16/20 19:49 Alprazolam 0.25 Mg Tab PO 0.25 mg BIDPRN PRN Administration Anxiety Apixaban 5 mg 07/12/20 09:00 07/16/20 19:50 Apixaban 5 Mg Tab PO 5 mg BID KALA Administration Atorvastatin Calcium 20 mg 07/12/20 21:00 07/16/20 19:50 Atorvastatin Calcium 10 Mg Tab PO 20 mg HS KALA Administration Carvedilol 3.125 mg 07/12/20 09:00 07/16/20 08:01 Carvedilol 3.125 Mg Tab PO 3.125 mg DAILY KALA Administration Dexamethasone 6 mg 07/12/20 09:00 07/16/20 08:00 Dexamethasone 4 Mg/Ml Vial SLOW IVP 6 mg DAILY KALA Administration Famotidine 20 mg 07/12/20 09:00 07/16/20 19:49 Famotidine 20 Mg Tab PO 20 mg BID KALA Administration Furosemide 20 mg 07/12/20 09:00 07/16/20 19:50 Furosemide 20 Mg Tab PO 20 mg BID KALA Administration Gabapentin 300 mg 07/12/20 09:00 07/16/20 19:49 Gabapentin 300 Mg Cap PO 300 mg TID KALA Administration Glipizide 2.5 mg 07/12/20 09:00 07/16/20 08:00 Glipizide Xl 2.5 Mg Tablet PO 2.5 mg DAILY KALA Administration Insulin Human Lispro 0 units 07/11/20 23:23 07/17/20 04:57 Humalog 300 Units/3 Ml Vial SC 2 unit .MODERATE SLIDING SC PRN Administration Moderate Correctional Scale Insulin Human Lispro 0 units 07/11/20 23:23 07/16/20 21:09 Humalog 300 Units/3 Ml Vial SC 2 unit .BEDTIME SLIDING SC PRN Administration Bedtime Correctional Scale Isosorbide Mononitrate 30 mg 07/12/20 09:00 07/16/20 08:01 Isosorbide Mononitrate Er 30 Mg Tab PO 30 mg DAILY KALA Administration Losartan Potassium 25 mg 07/12/20 09:00 07/16/20 08:01 Losartan 25 Mg Tab PO 25 mg DAILY KALA Administration Potassium Chloride 20 meq 07/12/20 09:00 07/16/20 08:01 Potassium Chloride 20 Meq Tab PO 20 meq DAILY KALA Administration Sertraline HCl 100 mg 07/12/20 09:00 07/16/20 08:01 Sertraline Hcl 100 Mg Tab PO 100 mg DAILY KALA Administration - Exam General Appearance: awake alert Neck: no JVD Heart: RRR Respiratory: CTAB Gastrointestinal: soft, normal bowel sounds Extremities: no edema Hosp A/P (1) Pneumonia due to COVID-19 virus Code(s): U07.1 - COVID-19; J12.89 - OTHER VIRAL PNEUMONIA Status: Acute (2) Acute respiratory failure with hypoxia Code(s): J96.01 - ACUTE RESPIRATORY FAILURE WITH HYPOXIA Status: Acute (3) HTN (hypertension) Code(s): I10 - ESSENTIAL (PRIMARY) HYPERTENSION Status: Acute Qualifiers: Hypertension type: essential hypertension Qualified Code(s): I10 - Essential (primary) hypertension (4) DM type 2 (diabetes mellitus, type 2) Status: Acute Qualifiers: Diabetes mellitus shelter insulin use: without shelter use Diabetes mellitus complication status: without complication Qualified Code(s): E11.9 - Type 2 diabetes mellitus without complications (5) Chronic anticoagulation Code(s): Z79.01 - SHELTER (CURRENT) USE OF ANTICOAGULANTS Status: Chronic (6) History of DVT/PE Status: Active (7) Obstructive sleep apnea syndrome Code(s): G47.33 - OBSTRUCTIVE SLEEP APNEA (ADULT) (PEDIATRIC) Status: Active - Plan cont iv decadron selected home meds discharge planning, may need home O2 possible DC today, CM involved
[2020-07-17 08:44] LABS: #Eosinphils 0.1 thou/uL (0.0-0.7); #Lymphocytes 1.6 thou/uL (1.20-3.40); #Monocytes 0.7 thou/uL (0.11-0.59); #Neutrophils 6.8 thou/uL (1.40-6.50); %Basophils 0.3 % (0.0-1.0); %Eosinophils 0.7 % (0.0-10.0); %Lymphocytes 17.6 % (21.0-51.0); %Monocytes 7.8 % (0.0-10.0); %Neutrophils 73.6 % (42.0-75.0); Hemoglobin 13.3 g/dL (12.0-16.0); Mean Corpuscular HGB CONC 34.1 g/dL (32.0-36.0); Mean Corpuscular Hemoglobin 31.6 pg (27.0-31.0); Mean Corpuscular Volume 92.6 fL (78.0-98.0); Mean Platelet Volume 9.4 fL (7.4-10.4); Platelet Count 198 thou/uL (130-400); RBC Distribution Width 12.9 % (11.5-14.5); Red Blood Cell (RBC) Count 4.22 mill/uL (4.20-5.40); White Blood Cell (WBC) Count 9.3 thou/uL (4.8-10.8)
[2020-07-17] MEDS: Carvedilol 3.125 MG TAB PO SCH (09:26)
[2020-07-17] MEDS: Gabapentin 300 MG CAP PO SCH (09:26)
[2020-07-17] MEDS: Losartan 25 MG TAB PO SCH (09:26)
[2020-07-17] MEDS: Famotidine 20 MG TAB PO SCH (09:26)
[2020-07-17] MEDS: Furosemide 20 MG TAB PO SCH (09:26)
[2020-07-17] MEDS: Potassium Chloride 20 MEQ TAB PO SCH (09:26)
[2020-07-17] MEDS: Apixaban 5 MG TAB PO SCH (09:27)
[2020-07-17] MEDS: Dexamethasone 4 mg/ml Vial SLOW IVP SCH (09:27)
[2020-07-17 10:09] VITALS: BP 131/68; TEMP 98.3
--- NOTE | 2020-07-18 05:27 | DIS ---
DATE OF ADMISSION: 07/11/2020 DATE OF DISCHARGE: 07/17/2020 PRIMARY CARE PROVIDER: Juan M Stein DO DISPOSITION: Discharged to [facility]. FINAL DIAGNOSES: Acute respiratory failure with hypoxemia, diabetes mellitus type 2, hypertension, atrial fibrillation, chronic anticoagulation, COVID pneumonia. DISCHARGE MEDICATIONS: 1. Glipizide 2.5 mg a day. 2. Protonix 40 mg a day. 3. Losartan 25 mg a day. 4. Eliquis 5 mg twice a day. 5. Potassium chloride 40 mEq a day. 6. Lipitor 20 mg a day. 7. Lasix 40 mg twice a day. 8. Imdur 30 mg daily. 9. Coreg 3.125 twice a day. 10. Xanax 0.25 mg p.o. b.i.d. p.r.n. 11. Zoloft 100 mg a day. 12. Neurontin 300 mg t.i.d. 13. Tylenol with Codeine No. 3 one tab every 6 hours p.r.n. for pain. 14. Zofran oral dissolving tablet 4 mg p.o. every 6 hours p.r.n. 15. Dexamethasone 6 mg p.o. daily starting 07/18/2020 for four days. 16. Albuterol sulfate 2.5 mg nebules every 6 hours p.r.n. ALLERGIES: PENICILLIN. CODE STATUS: Full resuscitation. PENDING AT TIME OF DISCHARGE: Nothing. DIET: Diabetic. HOSPITAL COURSE: The patient was admitted to [facility] to [facility] with shortness of breath. She had COVID infection diagnosed on 06/25/2020. Cultures were obtained. She was started on antibiotics, Decadron 6 mg IV, nebulizers. Chest x-ray demonstrated multifocal patchy infiltrates consistent with COVID. Her common metabolic profile was unremarkable. CBC: White count 6.6, hemoglobin 13.0, platelet count 266,000. Her hospital stay, 07/15/2020, her O2 saturations were normal on room air. She had a minimal cough. She did require oxygen when she got up, moved about. During hospital stay, she improved, remained stable. Chest x-ray demonstrates minimum fine rales. When she is examined, her vital signs are stable. She is afebrile. The patient lives alone at home. There has already been a plan to get her into rehab. PT and OT were obtained. She was referred to rehab. She is being transferred to the rehab hospital for PT/OT followup. She will need a chest x-ray sometime in the next week for followup of her COVID pneumonia. However, antibiotics were discontinued in the past. The patient has been comfortable with minimal exertional dyspnea. She will need follow up with her PCP, Juan M Stein, at the time of discharge from rehab. Job ID: [id number]
== END 2020-07-17 16:29 | DRG 177 ==
LOC: ERS 11:05 → ERHOLD 15:34 → T4-A 22:01 → OBSVTOIN 23:23
PROVIDERS: ADMIT Family Medicine; ATTEND Internal Medicine
PROC: 8E0ZXY6 Isolation (ICD-10-PCS; principal; 2020-07-11)
DX: U07.1 COVID-19 (principal); J12.89 Other viral pneumonia; J96.21 Acute and chronic respiratory failure with hypoxia; Z68.44 Body mass index [BMI] 60.0-69.9, adult; D68.69 Other thrombophilia; E11.9 Type 2 diabetes mellitus without complications; J44.9 Chronic obstructive pulmonary disease, unspecified; E78.5 Hyperlipidemia, unspecified; I10 Essential (primary) hypertension; F41.9 Anxiety disorder, unspecified; E78.00 Pure hypercholesterolemia, unspecified; G47.33 Obstructive sleep apnea (adult) (pediatric); F32.9 Major depressive disorder, single episode, unspecified; E66.01 Morbid (severe) obesity due to excess calories; Z90.49 Acquired absence of other specified parts of digestive tract; Z90.710 Acquired absence of both cervix and uterus; Z98.51 Tubal ligation status; Z79.01 Long term (current) use of anticoagulants; Z88.0 Allergy status to penicillin; Z86.718 Personal history of other venous thrombosis and embolism; Z86.711 Personal history of pulmonary embolism
CPT/HCPCS: 36415; 36416; 71045; 80048; 80053; 83605; 83880; 84484; 85025; 87040; 93005; 94760; 96374; J0456; J0696; J1100; J2930; J3490; J7050

== ENCOUNTER 2020-08-15 14:38 | Emergency (ER) | payer MEDICARE, BC ==
[2020-08-15 15:34] LABS: #Eosinphils 0.2 thou/uL (0.0-0.7); #Lymphocytes 1.5 thou/uL (1.20-3.40); #Monocytes 0.5 thou/uL (0.11-0.59); #Neutrophils 2.6 thou/uL (1.40-6.50); %Basophils 0.5 % (0.0-1.0); %Eosinophils 4.5 % (0.0-10.0); %Lymphocytes 31.5 % (21.0-51.0); %Monocytes 9.2 % (0.0-10.0); %Neutrophils 54.3 % (42.0-75.0); Hemoglobin 11.3 g/dL (12.0-16.0); Mean Corpuscular HGB CONC 30.6 g/dL (32.0-36.0); Mean Corpuscular Hemoglobin 28.7 pg (27.0-31.0); Mean Corpuscular Volume 94.1 fL (78.0-98.0); Platelet Count 188 thou/uL (130-400); Red Blood Cell (RBC) Count 3.93 mill/uL (4.20-5.40); White Blood Cell (WBC) Count 4.9 thou/uL (4.8-10.8)
[2020-08-15 16:00] LABS: ALT (SGPT) 9 U/L (8-55); AST (SGOT) 13 U/L (5-34); Alkaline Phosphatase 70 U/L (40-110); BUN (Urea Nitrogen) 11 mg/dL (9.8-20.1); Bilirubin, Total 0.5 mg/dL (0.2-1.2); Calc. Creatinine Clearance 0 mL/min (70-130); Globulin 2.8 g/dL (2.4-3.5); Glucose 115 mg/dL (83-110); Protein, Total 5.8 g/dL (6.0-8.3)
[2020-08-15 16:09] LABS: Anion Gap 14 mmol/L (10-20); Carbon Dioxide 32 mmol/L (23-31); Chloride 101 mmol/L (98-107); Potassium 3.6 mmol/L (3.5-5.1); Sodium 143 mmol/L (136-145)
--- NOTE | 2020-08-15 16:33 | RAD ---
AP CHEST: Date: 08/15/2020 HISTORY: Dyspnea. Previous COVID in June. Comparison made to exam of 07/11/2020. FINDINGS: Cardiomegaly with mild vascular congestion. The lung infiltrates noted on prior study show improvemen t. There may be some residual hazy infiltrates in the upper and peripheral lung zones. No confluent c onsolidation. There is evidence of persistent small bilateral effusions. IMPRESSION: Cardiomegaly with mild vascular congestion. Residual hazy infiltrates are not excluded and there cont inues to be evidence of small effusion. Overall improvement in the chest when compared to the prior s tudy. POS: AGW
[2020-08-15] MEDS ORDERED: Furosemide 40 MG/4 ML VIAL ONE (16:39)
== END 2020-08-15 20:30 | disposition home or self-care (01) ==
LOC: ERS 14:38
DX: I11.0 Hypertensive heart disease with heart failure (principal); I50.9 Heart failure, unspecified; Z74.09 Other reduced mobility; E11.9 Type 2 diabetes mellitus without complications; M19.90 Unspecified osteoarthritis, unspecified site; J44.9 Chronic obstructive pulmonary disease, unspecified; E78.00 Pure hypercholesterolemia, unspecified; Z79.01 Long term (current) use of anticoagulants; Z79.899 Other long term (current) drug therapy; Z79.84 Long term (current) use of oral hypoglycemic drugs
CPT/HCPCS: 71045; 80053; 83880; 84484; 85025; 93005; 96374; J1940

== ENCOUNTER 2020-10-01 23:01 | Emergency (ER) | payer BC, MEDICARE ==
[2020-10-01] MEDS ORDERED: Ondansetron ODT 8 MG TAB ONE (23:18)
[2020-10-01] MEDS ORDERED: Mag-Al 1200 mg/1200 mg/30 ML UDCUP ONE (23:28)
[2020-10-01 23:39] LABS: #Eosinphils 0.2 thou/uL (0.0-0.7); #Monocytes 0.6 thou/uL (0.11-0.59); #Neutrophils 5.6 thou/uL (1.40-6.50); %Basophils 0.5 % (0.0-1.0); %Eosinophils 2.5 % (0.0-10.0); %Lymphocytes 23.4 % (21.0-51.0); %Monocytes 6.8 % (0.0-10.0); %Neutrophils 66.7 % (42.0-75.0); Hemoglobin 11.2 g/dL (12.0-16.0); Mean Corpuscular HGB CONC 31.6 g/dL (32.0-36.0); Mean Corpuscular Hemoglobin 30.4 pg (27.0-31.0); Mean Corpuscular Volume 96.3 fL (78.0-98.0); Mean Platelet Volume 8.4 fL (7.4-10.4); Platelet Count 145 thou/uL (130-400); RBC Distribution Width 13.8 % (11.5-14.5); Red Blood Cell (RBC) Count 3.67 mill/uL (4.20-5.40); White Blood Cell (WBC) Count 8.3 thou/uL (4.8-10.8)
[2020-10-02 00:05] LABS: ALT (SGPT) Less than 7 U/L (8-55); AST (SGOT) 14 U/L (5-34); Alkaline Phosphatase 122 U/L (40-110); Anion Gap 14 mmol/L (10-20); BUN (Urea Nitrogen) 15 mg/dL (9.8-20.1); Bilirubin, Total 0.5 mg/dL (0.2-1.2); Calc. Creatinine Clearance 0 mL/min (70-130); Calcium 9.4 mg/dL (7.8-10.44); Carbon Dioxide 36 mmol/L (23-31); Chloride 96 mmol/L (98-107); Glucose 176 mg/dL (83-110); Lipase 56 U/L (8-78); Potassium 4.3 mmol/L (3.5-5.1); Protein, Total 6.6 g/dL (5.8-8.1); Sodium 142 mmol/L (136-145)
[2020-10-02 00:06] LABS: Globulin 3.1 g/dL (2.4-3.5)
[2020-10-02 00:26] LABS: Albumin 3.5 g/dL (3.4-4.8)
== END 2020-10-02 01:11 | disposition home or self-care (01) ==
LOC: ERS 23:01
DX: R11.2 Nausea with vomiting, unspecified (principal); R19.7 Diarrhea, unspecified; Z79.899 Other long term (current) drug therapy; Z79.01 Long term (current) use of anticoagulants; Z79.891 Long term (current) use of opiate analgesic; I50.9 Heart failure, unspecified; E11.9 Type 2 diabetes mellitus without complications; I11.0 Hypertensive heart disease with heart failure; J44.9 Chronic obstructive pulmonary disease, unspecified; E78.00 Pure hypercholesterolemia, unspecified; Z86.16 Personal history of COVID-19
CPT/HCPCS: 36415; 80053; 83690; 84484; 85025; 93005; Q0162

== ENCOUNTER 2021-01-28 00:49 | Emergency (ER) | payer MEDICARE ==
[2021-01-28] MEDS ORDERED: Insulin Regular 300 UNITS/3 ML VIAL ONE (01:12)
== END 2021-01-28 03:10 | disposition home or self-care (01) ==
LOC: ERS 00:49
DX: E11.65 Type 2 diabetes mellitus with hyperglycemia (principal); I11.0 Hypertensive heart disease with heart failure; I50.9 Heart failure, unspecified; J44.9 Chronic obstructive pulmonary disease, unspecified; E78.00 Pure hypercholesterolemia, unspecified; Z79.01 Long term (current) use of anticoagulants; Z79.899 Other long term (current) drug therapy
CPT/HCPCS: 36416; 99285; J1815

== ENCOUNTER 2021-06-15 13:46 | Emergency (ER) | payer MEDICARE ==
[2021-06-15 14:27] LABS: #Eosinphils 0.3 thou/uL (0.0-0.7); #Lymphocytes 2.7 thou/uL (1.20-3.40); #Monocytes 0.6 thou/uL (0.11-0.59); #Neutrophils 5.4 thou/uL (1.40-6.50); %Basophils 0.5 % (0.0-1.0); %Eosinophils 3.5 % (0.0-10.0); %Monocytes 6.9 % (0.0-10.0); %Neutrophils 59.2 % (42.0-75.0); Hemoglobin 12.1 g/dL (12.0-16.0); Mean Corpuscular HGB CONC 32.2 g/dL (32.0-36.0); Mean Corpuscular Hemoglobin 29.9 pg (27.0-31.0); Mean Corpuscular Volume 93.1 fL (78.0-98.0); Mean Platelet Volume 8.7 fL (7.4-10.4); Platelet Count 142 thou/uL (130-400); RBC Distribution Width 12.5 % (11.5-14.5); Red Blood Cell (RBC) Count 4.03 mill/uL (4.20-5.40)
[2021-06-15 14:41] LABS: ALT (SGPT) 11 U/L (8-55); AST (SGOT) 12 U/L (5-34); Albumin 3.4 g/dL (3.4-4.8); Alkaline Phosphatase 123 U/L (40-110); Anion Gap 12 mmol/L (10-20); BUN (Urea Nitrogen) 14 mg/dL (9.8-20.1); Bilirubin, Total 0.5 mg/dL (0.2-1.2); Calc. Creatinine Clearance 0 mL/min (70-130); Calcium 9.5 mg/dL (7.8-10.44); Carbon Dioxide 36 mmol/L (23-31); Chloride 96 mmol/L (98-107); Globulin 3.4 g/dL (2.4-3.5); Glucose 236 mg/dL (83-110); Potassium 4.1 mmol/L (3.5-5.1); Protein, Total 6.8 g/dL (5.8-8.1); Sodium 140 mmol/L (136-145)
== END 2021-06-15 16:45 | disposition home or self-care (01) ==
LOC: ERS 13:46
DX: R60.0 Localized edema (principal); I11.0 Hypertensive heart disease with heart failure; I50.9 Heart failure, unspecified; E11.9 Type 2 diabetes mellitus without complications; J44.9 Chronic obstructive pulmonary disease, unspecified; E78.00 Pure hypercholesterolemia, unspecified; Z79.899 Other long term (current) drug therapy; Z79.01 Long term (current) use of anticoagulants; Z79.84 Long term (current) use of oral hypoglycemic drugs
CPT/HCPCS: 71045; 80053; 83880; 84484; 85025; 93005

== ENCOUNTER 2022-10-04 16:53 | Inpatient (IN) | payer BC, MEDICARE, OTHER ==
[~2022-10-04 16:53] MED LIST changes: +ISOVUE-370 76%-LOCM 1 ML ONE; -Iopamidol 370 76% 50 ML VIAL FS ONE
[2022-10-04 18:29] LABS: Actual Bicarbonate (HCO3v) 33 mEq/L (22-28); Base Excess 6.1 mEq/L (-2.0 to +3.0); Calcium, Ionized (venous) 1.16 mmol/L (1.16-1.32); Chloride (VBG) 99 mmol/L (98-106); Hemoglobin (Hb) 14.2 g/dL (11.7-16.1); Potassium (VBG) 4.25 mmol/L (3.70-5.30); Sodium 140.3 mmol/L (133-146); pH (venous) 7.37 (7.32-7.43)
[2022-10-04 18:34] LABS: #Basophils 0.1 thou/uL (0.0-0.2); #Eosinphils 0.1 thou/uL (0.0-0.7); #Lymphocytes 3.3 thou/uL (1.20-3.40); #Monocytes 1.2 thou/uL (0.11-0.59); #Neutrophils 7.5 thou/uL (1.40-6.50); %Basophils 0.7 % (0.0-1.0); %Eosinophils 0.5 % (0.0-10.0); %Lymphocytes 27.3 % (21.0-51.0); %Monocytes 9.6 % (0.0-10.0); %Neutrophils 61.9 % (42.0-75.0); Hemoglobin 13.5 g/dL (12.0-16.0); Mean Corpuscular HGB CONC 32.6 g/dL (32.0-36.0); Mean Corpuscular Hemoglobin 31.7 pg (27.0-31.0); Mean Corpuscular Volume 97.4 fl (78.0-98.0); Mean Platelet Volume 10.4 fL (7.4-10.4); Platelet Count 195 10x3/uL (130-400); RBC Distribution Width 13.3 % (11.5-14.5); Red Blood Cell (RBC) Count 4.25 mill/uL (4.20-5.40); White Blood Cell (WBC) Count 12.1 10x3/uL (4.8-10.8)
[2022-10-04 18:52] LABS: ALT (SGPT) 12 U/L (8-55); AST (SGOT) 16 U/L (5-34); Albumin 3.6 g/dL (3.4-4.8); Alkaline Phosphatase 86 U/L (40-110); Anion Gap 14 mmol/L (10-20); BUN (Urea Nitrogen) 13 mg/dL (9.8-20.1); Bilirubin, Total 0.7 mg/dL (0.2-1.2); Calc. Creatinine Clearance 0 mL/min (70-130); Calcium 9.3 mg/dL (7.8-10.44); Carbon Dioxide 26 mmol/L (23-31); Chloride 101 mmol/L (98-107); Estimated GFR 76; Globulin 3.6 g/dL (2.4-3.5); Glucose 132 mg/dL (83-110); Lipase Less than 4 U/L (8-78); Magnesium 1.6 mg/dL (1.6-2.6); Potassium 4.2 mmol/L (3.5-5.1); Protein, Total 7.2 g/dL (5.8-8.1); Sodium 137 mmol/L (136-145)
[2022-10-04 20:13] LABS: Bilirubin Negative (Negative); Blood, Urine Negative (Negative); Clarity Clear (Clear); Glucose, Urine (Dipstick) Normal (Negative); Ketone, Urine Negative (Negative); Leukocyte Negative Leu/uL (Negative); Nitrite Negative (Negative); Protein, Urine (Dipstick) Negative (Neg-Trace); Urobilinogen Normal mg/dL (Less than 2)
[2022-10-04] MEDS ORDERED: Acetaminophen 500 MG TAB ONE (20:18)
[2022-10-04 21:07] LABS: SARS-CoV-2 NAA Rapid Test Not Detected (NotDetected)
[2022-10-04] MEDS ORDERED: Clindamycin/D5W 600 mg/50 ml Premix Bag ONE (22:33)
[2022-10-04] MEDS ORDERED: Ondansetron PF 4 MG/2 ML Vial IVP PRN ×2 (23:00→23:14)
[2022-10-04] MEDS ORDERED: Ondansetron ODT 4 MG TAB SL PRN (23:00)
[2022-10-04] MEDS ORDERED: Acetaminophen 325 MG TAB PO PRN (23:00)
[2022-10-04] MEDS ORDERED: Ondansetron ODT 4 MG TAB PO PRN (23:14)
[2022-10-04] MEDS ORDERED: HumaLOG 300 UNITS/3 ML VIAL SC PRN ×2 (23:14)
[2022-10-04] MEDS ORDERED: Senokot S 8.6-50 MG TAB PO PRN (23:14)
[2022-10-04] MEDS ORDERED: Dextrose 50% Abboject 50 ML SYRINGE SLOW IVP PRN (23:14)
[2022-10-04] MEDS ORDERED: Dextrose 5% in Water 1,000 ML IV PRN (23:14)
[2022-10-04] MEDS ORDERED: Cefepime 2 GM VIAL ONE (23:27)
[2022-10-05 00:39] VITALS: BMI 57.3
[2022-10-05] MEDS: Acetaminophen 325 MG TAB PO PRN (01:18)
[2022-10-05 05:35] LABS: #Basophils 0.1 thou/uL (0.0-0.2); #Eosinphils 0.1 thou/uL (0.0-0.7); #Lymphocytes 3.5 thou/uL (1.20-3.40); #Monocytes 1.2 thou/uL (0.11-0.59); #Neutrophils 6.3 thou/uL (1.40-6.50); %Basophils 0.5 % (0.0-1.0); %Eosinophils 1.3 % (0.0-10.0); %Lymphocytes 31.4 % (21.0-51.0); %Monocytes 10.9 % (0.0-10.0); %Neutrophils 55.8 % (42.0-75.0); Hemoglobin 10.7 g/dL (12.0-16.0); Mean Corpuscular HGB CONC 30.6 g/dL (32.0-36.0); Mean Corpuscular Hemoglobin 29.6 pg (27.0-31.0); Mean Corpuscular Volume 96.9 fl (78.0-98.0); Mean Platelet Volume 10.5 fL (7.4-10.4); Platelet Count 169 10x3/uL (130-400); RBC Distribution Width 13.1 % (11.5-14.5); Red Blood Cell (RBC) Count 3.63 mill/uL (4.20-5.40); White Blood Cell (WBC) Count 11.2 10x3/uL (4.8-10.8)
[2022-10-05] MEDS ORDERED: Clindamycin/D5W 600 MG in Premix Bag 1 BAG IVPB SCH (06:00)
[2022-10-05 06:09] LABS: Anion Gap 12 mmol/L (10-20); BUN (Urea Nitrogen) 12 mg/dL (9.8-20.1); Calc. Creatinine Clearance 149 mL/min (70-130); Calcium 8.4 mg/dL (7.8-10.44); Carbon Dioxide 28 mmol/L (23-31); Chloride 101 mmol/L (98-107); Estimated GFR 88; Glucose 159 mg/dL (83-110); Magnesium 1.5 mg/dL (1.6-2.6); Potassium 3.6 mmol/L (3.5-5.1); Sodium 137 mmol/L (136-145)
[2022-10-05] MEDS ORDERED: Lorazepam 2 MG/ML VIAL SLOW IVP SCH (08:44)
[2022-10-05] MEDS ORDERED: Magnesium Sulfate In Water 4 GM in Premix Bag 1 BAG IVPB SCH (09:00)
[2022-10-05] MEDS ORDERED: Vancomycin 1 GM in Premix Bag 1 BAG IVPB SCH (09:00)
[2022-10-05] MEDS ORDERED: FLU VACC QS2022-23(65YR UP)/PF 240 MCG/0.7 ML SYRINGE IM ONE (09:00)
[2022-10-05] MEDS: VANCOMYCIN 2 GRAM/500 ML BAG 2 GM in Premix Bag 1 BAG IVPB SCH ×2 (09:56→20:09)
[2022-10-05] MEDS: Floranex 1 GM Packet PO SCH (10:45)
[2022-10-05] MEDS: Cefepime 1 GM in Sodium Chloride 0.9% 100 ML IVPB SCH ×2 (11:06→23:19)
[2022-10-05] MEDS ORDERED: Polyethylene Glycol OPTH DROP 15 ML BOT EA EYE PRN (18:22)
[2022-10-05] MEDS: Acetaminophen/Codeine 30-300mg Tablet PO PRN (20:08)
[2022-10-05] MEDS: Gabapentin 300 MG CAP PO SCH (20:09)
[2022-10-06 08:26] LABS: #Basophils 0.1 thou/uL (0.0-0.2); #Eosinphils 0.3 thou/uL (0.0-0.7); #Monocytes 1.2 thou/uL (0.11-0.59); #Neutrophils 7.8 thou/uL (1.40-6.50); %Basophils 0.5 % (0.0-1.0); %Eosinophils 2.1 % (0.0-10.0); %Lymphocytes 24.7 % (21.0-51.0); %Monocytes 9.5 % (0.0-10.0); %Neutrophils 63.3 % (42.0-75.0); Hemoglobin 11.2 g/dL (12.0-16.0); Mean Corpuscular HGB CONC 31.4 g/dL (32.0-36.0); Mean Corpuscular Hemoglobin 30.1 pg (27.0-31.0); Mean Corpuscular Volume 95.7 fl (78.0-98.0); Mean Platelet Volume 10.7 fL (7.4-10.4); Platelet Count 172 10x3/uL (130-400); Red Blood Cell (RBC) Count 3.73 mill/uL (4.20-5.40); White Blood Cell (WBC) Count 12.3 10x3/uL (4.8-10.8)
[2022-10-06 08:35] LABS: Anion Gap 11 mmol/L (10-20); BUN (Urea Nitrogen) 8 mg/dL (9.8-20.1); Calc. Creatinine Clearance 165 mL/min (70-130); Calcium 8.3 mg/dL (7.8-10.44); Carbon Dioxide 28 mmol/L (23-31); Chloride 102 mmol/L (98-107); Estimated GFR 91; Glucose 152 mg/dL (83-110); Magnesium 1.8 mg/dL (1.6-2.6); Potassium 3.5 mmol/L (3.5-5.1); Sodium 137 mmol/L (136-145)
[2022-10-06] MEDS: Floranex 1 GM Packet PO SCH (09:13)
[2022-10-06] MEDS: Sertraline 100 MG TAB PO SCH (09:13)
[2022-10-06] MEDS: Gabapentin 300 MG CAP PO SCH ×3 (09:14→20:00)
[2022-10-06] MEDS: Losartan 25 MG TAB PO SCH (09:16)
[2022-10-06] MEDS: Atorvastatin Calcium 20 MG TAB PO SCH (09:16)
[2022-10-06] MEDS: VANCOMYCIN 2 GRAM/500 ML BAG 2 GM in Premix Bag 1 BAG IVPB SCH ×2 (09:55→20:35)
[2022-10-06] MEDS: Cefepime 1 GM in Sodium Chloride 0.9% 100 ML IVPB SCH (11:00)
[2022-10-06] MEDS ORDERED: Cefepime 2 GM in Sodium Chloride 0.9% 100 ML IVPB SCH (11:15)
[2022-10-06] MEDS ORDERED: Lidocaine 1% w/Epinephrine 1:100K 20 ML VIAL ONE (13:56)
[2022-10-06] MEDS ORDERED: Lidocaine 1% w/Epinephrine 1:100K 20 ML VIAL FS SCH (14:00)
[2022-10-06] MEDS ORDERED: Chlorhexidine Gluconate 15 ML UDCUP SSP SCH (14:15)
[2022-10-06] MEDS: Acetaminophen 325 MG TAB PO PRN (16:22)
[2022-10-06] MEDS: Sodium Chloride 0.9% 1,000 ML IV SCH (17:14)
[2022-10-06] MEDS: Chlorhexidine Gluconate 15 ML UDCUP SSP SCH ×2 (17:14→20:00)
[2022-10-06] MEDS ORDERED: Acetaminophen 500 MG TAB PO SCH (19:45)
[2022-10-06] MEDS ORDERED: VANCOMYCIN 2 GRAM/500 ML BAG 2 GM in Premix Bag 1 BAG IVPB SCH (21:00)
[2022-10-06] MEDS: Cefepime 2 GM in Sodium Chloride 0.9% 100 ML IVPB SCH (23:19)
[2022-10-07] MEDS: Gabapentin 300 MG CAP PO SCH ×3 (08:53→21:04)
[2022-10-07] MEDS: Chlorhexidine Gluconate 15 ML UDCUP SSP SCH ×4 (08:53→21:05)
[2022-10-07] MEDS: Sertraline 100 MG TAB PO SCH (08:55)
[2022-10-07] MEDS: Floranex 1 GM Packet PO SCH (08:55)
[2022-10-07] MEDS: Losartan 25 MG TAB PO SCH (08:56)
[2022-10-07] MEDS: Atorvastatin Calcium 20 MG TAB PO SCH (08:56)
[2022-10-07] MEDS: ALPRAZolam 0.25 MG TAB PO PRN (09:03)
[2022-10-07] MEDS: Acetaminophen 325 MG TAB PO PRN ×2 (09:03→21:04)
[2022-10-07] MEDS: Morphine 2 MG/ML VIAL SLOW IVP PRN ×2 (09:03→21:12)
[2022-10-07 09:47] LABS: #Eosinphils 0.3 thou/uL (0.0-0.7); #Lymphocytes 2.6 thou/uL (1.20-3.40); #Monocytes 1.1 thou/uL (0.11-0.59); %Eosinophils 2.9 % (0.0-10.0); %Lymphocytes 21.8 % (21.0-51.0); %Monocytes 9.2 % (0.0-10.0); %Neutrophils 66.1 % (42.0-75.0); Hemoglobin 10.5 g/dL (12.0-16.0); Mean Corpuscular HGB CONC 32.4 g/dL (32.0-36.0); Mean Corpuscular Hemoglobin 30.8 pg (27.0-31.0); Mean Corpuscular Volume 95.2 fl (78.0-98.0); Mean Platelet Volume 10.8 fL (7.4-10.4); Platelet Count 158 10x3/uL (130-400); RBC Distribution Width 13.1 % (11.5-14.5); Red Blood Cell (RBC) Count 3.42 mill/uL (4.20-5.40)
[2022-10-07 09:51] LABS: Vancomycin, Trough 19.9 ug/mL
[2022-10-07 09:53] LABS: Anion Gap 10 mmol/L (10-20); BUN (Urea Nitrogen) 7 mg/dL (9.8-20.1); Calc. Creatinine Clearance 176 mL/min (70-130); Calcium 8.1 mg/dL (7.8-10.44); Carbon Dioxide 26 mmol/L (23-31); Chloride 105 mmol/L (98-107); Estimated GFR 92; Glucose 159 mg/dL (83-110); Magnesium 1.8 mg/dL (1.6-2.6); Potassium 3.4 mmol/L (3.5-5.1); Sodium 138 mmol/L (136-145)
[2022-10-07] MEDS ORDERED: Potassium Chloride 20 MEQ TAB PO SCH (10:00)
[2022-10-07] MEDS ORDERED: Electrolyte Replacement Protocol 1 EACH FS SCH (10:00)
[2022-10-07] MEDS ORDERED: Magnesium 2 GM/50 ML(in water) 2 GM in Premix Bag 1 BAG IVPB SCH (10:00)
[2022-10-07 10:16] LABS: Large Platelets SLIGHT; MDiff Complete? YES; Platelet Morphology Comment Appears Adequate; Polychromasia SLIGHT = 2-3 cells (100X) (0-2/hpf)
[2022-10-07] MEDS ORDERED: Electrolyte Replacement Protocol FS PRN (10:30)
[2022-10-07] MEDS: Sodium Chloride 0.9% 1,000 ML IV SCH (14:23)
[2022-10-07] MEDS: Cefepime 2 GM in Sodium Chloride 0.9% 100 ML IVPB SCH ×2 (14:27→22:33)
[2022-10-07] MEDS: Acetaminophen/Codeine 30-300mg Tablet PO PRN (15:08)
[2022-10-07] MEDS: VANCOMYCIN 2 GRAM/500 ML BAG 2 GM in Premix Bag 1 BAG IVPB SCH (15:15)
[2022-10-08 08:00] LABS: #Eosinphils 0.6 thou/uL (0.0-0.7); #Lymphocytes 2.6 thou/uL (1.20-3.40); #Neutrophils 4.7 thou/uL (1.40-6.50); %Eosinophils 6.3 % (0.0-10.0); %Lymphocytes 29.3 % (21.0-51.0); %Monocytes 11.4 % (0.0-10.0); Hemoglobin 10.7 g/dL (12.0-16.0); Mean Corpuscular Hemoglobin 30.9 pg (27.0-31.0); Mean Corpuscular Volume 96.7 fl (78.0-98.0); Mean Platelet Volume 9.9 fL (7.4-10.4); Platelet Count 185 10x3/uL (130-400); Red Blood Cell (RBC) Count 3.46 mill/uL (4.20-5.40); White Blood Cell (WBC) Count 8.9 10x3/uL (4.8-10.8)
[2022-10-08] MEDS: Sertraline 100 MG TAB PO SCH (08:20)
[2022-10-08] MEDS: Gabapentin 300 MG CAP PO SCH ×3 (08:20→21:06)
[2022-10-08 08:21] LABS: Anion Gap 7 mmol/L (10-20); BUN (Urea Nitrogen) 11 mg/dL (9.8-20.1); Calc. Creatinine Clearance 182 mL/min (70-130); Calcium 8.1 mg/dL (7.8-10.44); Carbon Dioxide 28 mmol/L (23-31); Chloride 105 mmol/L (98-107); Estimated GFR 93; Glucose 106 mg/dL (83-110); Sodium 136 mmol/L (136-145)
[2022-10-08] MEDS: Losartan 25 MG TAB PO SCH (08:21)
[2022-10-08] MEDS: Chlorhexidine Gluconate 15 ML UDCUP SSP SCH ×4 (08:21→21:06)
[2022-10-08] MEDS: Atorvastatin Calcium 20 MG TAB PO SCH (08:21)
[2022-10-08] MEDS: Floranex 1 GM Packet PO SCH (08:21)
[2022-10-08] MEDS: Sodium Chloride 0.9% 1,000 ML IV SCH (08:27)
[2022-10-08] MEDS ORDERED: Magnesium 2 GM/50 ML(in water) 2 GM in Premix Bag 1 BAG IVPB SCH (09:00)
[2022-10-08] MEDS: Cefepime 2 GM in Sodium Chloride 0.9% 100 ML IVPB SCH ×2 (10:43→23:16)
[2022-10-08] MEDS: VANCOMYCIN 2 GRAM/500 ML BAG 2 GM in Premix Bag 1 BAG IVPB SCH (14:10)
[2022-10-08] MEDS: Morphine 2 MG/ML VIAL SLOW IVP PRN ×2 (17:23→21:04)
[2022-10-08] MEDS: Acetaminophen/Codeine 30-300mg Tablet PO PRN (19:14)
[2022-10-08] MEDS: ALPRAZolam 0.25 MG TAB PO PRN (19:15)
[2022-10-08] MEDS: Acetaminophen 325 MG TAB PO PRN (21:04)
[2022-10-09 06:39] LABS: #Eosinphils 0.7 thou/uL (0.0-0.7); #Lymphocytes 2.8 thou/uL (1.20-3.40); #Neutrophils 3.8 thou/uL (1.40-6.50); %Basophils 0.4 % (0.0-1.0); %Eosinophils 8.1 % (0.0-10.0); %Lymphocytes 34.3 % (21.0-51.0); %Monocytes 11.9 % (0.0-10.0); %Neutrophils 45.4 % (42.0-75.0); Hemoglobin 10.4 g/dL (12.0-16.0); Mean Corpuscular HGB CONC 31.8 g/dL (32.0-36.0); Mean Corpuscular Hemoglobin 30.7 pg (27.0-31.0); Mean Corpuscular Volume 96.6 fl (78.0-98.0); Mean Platelet Volume 9.7 fL (7.4-10.4); Platelet Count 186 10x3/uL (130-400); Red Blood Cell (RBC) Count 3.37 mill/uL (4.20-5.40); White Blood Cell (WBC) Count 8.3 10x3/uL (4.8-10.8)
[2022-10-09 06:57] LABS: Anion Gap 12 mmol/L (10-20); BUN (Urea Nitrogen) 9 mg/dL (9.8-20.1); Calc. Creatinine Clearance 182 mL/min (70-130); Calcium 8.3 mg/dL (7.8-10.44); Carbon Dioxide 25 mmol/L (23-31); Chloride 106 mmol/L (98-107); Estimated GFR 93; Glucose 109 mg/dL (83-110); Potassium 3.8 mmol/L (3.5-5.1); Sodium 139 mmol/L (136-145)
[2022-10-09] MEDS ORDERED: Magnesium 2 GM/50 ML(in water) 2 GM in Premix Bag 1 BAG IVPB SCH (08:00)
[2022-10-09] MEDS: Chlorhexidine Gluconate 15 ML UDCUP SSP SCH ×4 (08:09→21:01)
[2022-10-09] MEDS: Atorvastatin Calcium 20 MG TAB PO SCH (08:09)
[2022-10-09] MEDS: Sertraline 100 MG TAB PO SCH (08:09)
[2022-10-09] MEDS: Gabapentin 300 MG CAP PO SCH ×3 (08:09→21:00)
[2022-10-09] MEDS: Losartan 25 MG TAB PO SCH (08:10)
[2022-10-09] MEDS: Floranex 1 GM Packet PO SCH (08:11)
[2022-10-09] MEDS: Cefepime 2 GM in Sodium Chloride 0.9% 100 ML IVPB SCH (10:33)
[2022-10-09 12:06] LABS: Bacteria/HPF 2+ HPF (None Seen); Bilirubin Negative (Negative); Blood, Urine Negative (Negative); CAUTI Indications for Culture Dysuria,urgency,freq; Clarity Clear (Clear); Glucose, Urine (Dipstick) Normal (Negative); Ketone, Urine Trace mg/dL (Negative); Leukocyte Negative Leu/uL (Negative); Nitrite Negative (Negative); Protein, Urine (Dipstick) 20 mg/dL (Neg-Trace); RBC/HPF 0-3 HPF (0-3); Specific Gravity, Urine 1.021 (1.002-1.036); Squamous Epithelial 0-3 HPF (0-3); Urobilinogen Normal mg/dL (Less than 2); WBC/HPF 0-3 HPF (0-3)
[2022-10-09 12:10] LABS: Urine Culture Reflex No No
[2022-10-09 12:24] LABS: Vancomycin, Trough 20.1 ug/mL
[2022-10-09] MEDS ORDERED: VANCOMYCIN 1.75 GM/500 ML BAG 1.75 GM in Premix Bag 1 BAG IVPB SCH (13:00)
[2022-10-09] MEDS: Acetaminophen/Codeine 30-300mg Tablet PO PRN (13:38)
[2022-10-09] MEDS: metroNIDAZOLE 500 MG TAB PO SCH ×2 (14:56→21:00)
[2022-10-09] MEDS: Cefdinir 300 MG CAP PO SCH (21:00)
[2022-10-09] MEDS ORDERED: Acetaminophen/Codeine 30-300mg Tablet PO PRN (21:34)
[2022-10-10 06:55] LABS: #Basophils 0.1 thou/uL (0.0-0.2); #Eosinphils 0.7 thou/uL (0.0-0.7); #Lymphocytes 3.3 thou/uL (1.20-3.40); #Neutrophils 4.3 thou/uL (1.40-6.50); %Basophils 0.6 % (0.0-1.0); %Eosinophils 7.1 % (0.0-10.0); %Lymphocytes 35.4 % (21.0-51.0); %Monocytes 11.1 % (0.0-10.0); %Neutrophils 45.7 % (42.0-75.0); Hemoglobin 10.8 g/dL (12.0-16.0); Mean Corpuscular HGB CONC 32.1 g/dL (32.0-36.0); Mean Corpuscular Hemoglobin 30.6 pg (27.0-31.0); Mean Corpuscular Volume 95.5 fl (78.0-98.0); Mean Platelet Volume 9.3 fL (7.4-10.4); Platelet Count 214 10x3/uL (130-400); RBC Distribution Width 13.1 % (11.5-14.5); Red Blood Cell (RBC) Count 3.52 mill/uL (4.20-5.40); White Blood Cell (WBC) Count 9.3 10x3/uL (4.8-10.8)
[2022-10-10 07:18] LABS: Anion Gap 10 mmol/L (10-20); BUN (Urea Nitrogen) 11 mg/dL (9.8-20.1); Calc. Creatinine Clearance 192 mL/min (70-130); Calcium 8.6 mg/dL (7.8-10.44); Carbon Dioxide 28 mmol/L (23-31); Chloride 104 mmol/L (98-107); Estimated GFR 94; Glucose 96 mg/dL (83-110); Magnesium 1.9 mg/dL (1.6-2.6); Potassium 3.7 mmol/L (3.5-5.1); Sodium 138 mmol/L (136-145)
[2022-10-10 07:36] VITALS: BP 148/70; TEMP 98.8
[2022-10-10] MEDS ORDERED: Magnesium 2 GM/50 ML(in water) 2 GM in Premix Bag 1 BAG IVPB SCH (08:15)
[2022-10-10] MEDS: Cefdinir 300 MG CAP PO SCH (08:47)
[2022-10-10] MEDS: Sertraline 100 MG TAB PO SCH (08:47)
[2022-10-10] MEDS: metroNIDAZOLE 500 MG TAB PO SCH (08:47)
[2022-10-10] MEDS: Losartan 25 MG TAB PO SCH (08:47)
[2022-10-10] MEDS: Gabapentin 300 MG CAP PO SCH (08:48)
[2022-10-10] MEDS: Floranex 1 GM Packet PO SCH (08:48)
[2022-10-10] MEDS: Atorvastatin Calcium 20 MG TAB PO SCH (08:48)
[2022-10-10] MEDS: Chlorhexidine Gluconate 15 ML UDCUP SSP SCH (08:48)
== END 2022-10-10 11:59 | disposition home health service (06) | DRG 853 ==
LOC: ERS 16:53 → 2NO 22:56 → T4-A 10-05 13:29 → OBSVTOIN 10-05 15:50
PROVIDERS: ADMIT Family Medicine; ATTEND Family Medicine
PROC: 3E03329 Introduction of Other Anti-infective into Peripheral Vein, Percutaneous Approach (ICD-10-PCS; principal; 2022-10-05)
PROC: 0C940ZZ Drainage of Buccal Mucosa, Open Approach (ICD-10-PCS; 2022-10-06)
PROC: 0C940ZZ Drainage of Buccal Mucosa, Open Approach (ICD-10-PCS; 2022-10-08)
DX: A41.9 Sepsis, unspecified organism (principal); G93.41 Metabolic encephalopathy; L03.211 Cellulitis of face; Z68.43 Body mass index [BMI] 50.0-59.9, adult; Z20.822 Contact with and (suspected) exposure to COVID-19; M27.2 Inflammatory conditions of jaws; K04.1 Necrosis of pulp; R65.20 Severe sepsis without septic shock; E66.01 Morbid (severe) obesity due to excess calories; F32.A Depression, unspecified; I11.0 Hypertensive heart disease with heart failure; I50.9 Heart failure, unspecified; E11.9 Type 2 diabetes mellitus without complications; G47.33 Obstructive sleep apnea (adult) (pediatric); K04.7 Periapical abscess without sinus; L89.152 Pressure ulcer of sacral region, stage 2; Z28.21 Immunization not carried out because of patient refusal; Z88.0 Allergy status to penicillin; Z79.899 Other long term (current) drug therapy; Z86.718 Personal history of other venous thrombosis and embolism; Z79.01 Long term (current) use of anticoagulants; Z79.52 Long term (current) use of systemic steroids; Z90.710 Acquired absence of both cervix and uterus
CPT/HCPCS: 36415; 36416; 51701; 70450; 70491; 71045; 80048; 80053; 80202; 81001; 81003; 82805; 83605; 83690; 83735; 83880; 84484; 85025; 85652; 86140; 87040; 87070; 87086; 87205; 93005; 96365; 96367; 96375; 96376; G0378; J0692; J1650; J1815; J2272; J3370; J3475; J3490; J7050; Q9966